=== PATIENT | male | born 1985 ===

== ENCOUNTER 2024-02-10 22:05 | Emergency (ER) | payer BC, SELFPAY ==
[2024-02-10 22:08] VITALS: BP 138/93; PULSE 77; RESP 18; TEMP 36.8; O2SAT 98; BMI 39.1
[2024-02-10 22:21] VITALS: BP 142/88; PULSE 77; RESP 16; TEMP 36.6; O2SAT 93
--- NOTE | 2024-02-10 23:24 | ED.GENADULT ---
HPI - General Adult General Chief complaint: Eye Problems Stated complaint: eye issues/can't really see/painful Time Seen by Provider: 02/10/24 22:23 Source: patient, RN notes reviewed and old records reviewed Mode of arrival: ambulatory Limitations: no limitations History of Present Illness ED Provider: Mariely PEÑA narrative: 39-year-old male presents for evaluation of his eyes burning. Patient reports that his symptoms started 1 week ago. He states his eyes are crusted together when he wakes up He also reports congestion, runny nose. Denies any fevers, chills. He is able to see what states that both of his eyes are sometimes blurry. He does not wear contacts He states that about a month ago he was diagnosed with pinkeye and was started on a medication called polymyxin B. He has some left over because he did not finish the prescription He has been using it for the last 3 days without any improvement Denies any trauma to the eyes but does state that he has been rubbing them frequently due to itching Related Data Previous Rx's ?Medication ?Instructions ?Recorded ciprofloxacin HCl 0.3 % eye See Rx Instructions ophthalmic 02/10/24 ointment (eye) .COMPLEX #3.5 grams Allergies Allergy/AdvReac Type Severity Reaction Status Date / Time No Known Allergies Allergy Verified 02/10/24 22:13 Review of Systems Constitutional: Constitutional: Denies body ache(s), Denies chills, Denies fever(s) and Denies frequent falls Eyes: Eyes: Reports blurry vision, Denies diplopia, Reports eye discharge and Reports itchy eyes ENT: Reports nasal congestion Cardiovascular: Cardiovascular: Denies chest pain and Denies dyspnea Respiratory: Respiratory: Denies cough and Denies dyspnea Gastrointestinal: Gastrointestinal: Denies abdominal pain, Denies nausea and Denies vomiting Integumentary/Breasts: Skin/Breast: Denies rash Neurologic: Denies frequent falls Allergic/Immunologic: Allergic/Immunologic: Reports itchy eyes PMFSH Social History Social History Advance Directives: No Advance Directives Information Provided: No Do you have a plan to hurt others: No Plan Physical Exam ED Vital Signs: Vital Signs - 24 hr 02/10/24 22:08 02/10/24 22:21 Temperature 98.3 F 97.9 F Pulse Rate 77 77 Respiratory Rate 18 16 Blood Pressure 138/93 H 142/88 H Pulse Oximetry 98 93 Oxygen Delivery Method Room Air Room Air BMI result Body Mass Index 39.1 Const General: healthy appearing, comfortable, no acute distress, alert and awake Nutritional Appearance: well nourished Orientation/consciousness: patient oriented x3 HENMT Head: Yes normocephalic and Yes atraumatic Throat: Yes posterior oropharynx normal Eyes Other: Intra-ocular pressure 16 mmHg in the left eye, 18 mm Hg in the right eye Alignment and Position: alignment normal Periorbital: periorbital findings normal Eyelids: Yes eyelids normal Conjunctivae: conjunctival abnormal (Faint bilateral conjunctival injection left greater than right) Sclerae: sclerae normal Corneas: corneas normal and fluorescein used (Fluorescein use without increased uptake) Pupils: Equal, round and reactive pupils present EOM: EOMs intact bilaterally Direct Ophthalmoscopy: normal light reflex Neck Neck: Yes full ROM Resp Effort & Inspection: normal respiratory effort, able to speak in complete sentences and not labored Skin General skin exam: elasticity normal Neuro General: patient oriented x3 Cranial nerves: Yes Equal, round and reactive pupils present and Yes Bilaterally intact EOM present Cognition (Neuro): normal cognition Extrem Other: Moving all extremities well without any obvious deformities Medications Administered Discontinued Medications Generic Name Dose Route Start Last Admin Trade Name Freq PRN Reason Stop Dose Admin Fluorescein Sodium 1 strip 02/10/24 22:37 02/10/24 23:42 Fluorescein Sodium Strip EYE-BOTH 02/10/24 22:38 1 strip ONCE ONE Administration Tetracaine HCl 1 drop 02/10/24 22:37 02/10/24 23:42 Tetracaine Hcl/Pf 0.5% Oph Agustina 4 Ml Drops EYE-BOTH 02/10/24 22:38 1 drop ONCE ONE Administration Medical Decision Making Medical Decision Making [facility] Narrative: 39-year-old male presents for evaluation of bilateral eye pain and burning. History exam consistent with conjunctivitis possibly allergic etiology. He has had no improvement with polymyxin B. we will try ciprofloxacin ointment. However if this is not successful it is likely due to allergic etiology of the symptoms. I encouraged [id number] allergy medication. Intra-ocular pressures are within normal limits, there was no evidence of trauma, there is no to corneal abrasion. Differential Diagnosis Differential Diagnoses: The differential diagnosis associated with the presentation includes Bacterial conjunctivitis Allergic conjunctivitis Corneal abrasion Glaucoma less likely Discharge Plan Discharge Clinical Impression: Conjunctivitis Patient Disposition: Home, Self-Care Instructions: Conjunctivitis (ED) Additional Instructions: Stop using the polymyxin B. Use ciprofloxacin ointment 3 times a day for 5 days I also recommend that you continue the [id number] allergy medication Follow-up with your primary doctor Return for new or worsening symptoms Prescriptions: New ciprofloxacin HCl 0.3 % ointment See Rx Instructions .ROUTE .COMPLEX Qty: 3.5 0RF Rx Instructions: apply 1/2 inch ribbon into affected eye(s) 3 times daily for 2 days; then twice daily for 5 days Stand Alone Forms: Work/School Release Print Language: Tajik
[2024-02-10 23:40] VITALS: BP 142/88; PULSE 77; RESP 16; TEMP 36.6; O2SAT 93
[2024-02-10] MEDS: Fluorescein Sodium STRIP 1 STRIP EYE-BOTH (23:42)
[2024-02-10] MEDS: Tetracaine HCl/PF 0.5% Oph Sol 4 ML DROPS 1 DROP EYE-BOTH (23:42)
== END 2024-02-11 00:11 | disposition home or self-care (01) ==
PROVIDERS: Emergency Provider Emergency Medicine
DX: H10.9 Unspecified conjunctivitis (principal)
CPT/HCPCS: 99283; 99284

== ENCOUNTER 2024-03-07 23:02 | Emergency (ER) | payer BC, SELFPAY ==
[2024-03-07 23:24] VITALS: BP 139/97; PULSE 96; RESP 22; TEMP 37.4; O2SAT 98; BMI 38.1
--- NOTE | 2024-03-07 23:39 | ED.DENTAL ---
HPI - Dental/Oral General Chief complaint: Dental/Oral Stated complaint: dental pain Time Seen by Provider: 03/07/24 23:33 Source: patient Mode of arrival: ambulatory Limitations: no limitations History of Present Illness ED Provider: donato PEÑA Narrative: Patient with dental caries for a while with broken tooth swelling of the jaw which got worse in last few hours does have history of diabetes unable to see a dentist here on arrival temperature was 99.4 degrees Related Data Previous Rx's ?Medication ?Instructions ?Recorded ciprofloxacin HCl 0.3 % eye See Rx Instructions ophthalmic 02/10/24 ointment (eye) .COMPLEX #3.5 grams amoxicillin 875 mg-potassium 1 tab PO BID #20 tabs 03/07/24 clavulanate 125 mg tablet morphine 15 mg immediate release 15 mg PO Q8H PRN pain #15 tabs 03/07/24 tablet Allergies Allergy/AdvReac Type Severity Reaction Status Date / Time No Known Allergies Allergy Verified 03/07/24 23:28 Review of Systems Review of Systems: Yes all other systems are reviewed and are negative [facility] Social History Social History Unable to assess alcohol history related to: Unknown Smoked in Last 30 Days: No Use of substances other than those prescribed or required for medical reasons: No Advance Directives: No Advance Directives Information Provided: Yes Physical Exam Vital Signs: Vital Signs: Last Vital Signs Temp 98.7 F 03/08/24 00:22 Pulse 82 03/08/24 00:22 Resp 16 03/08/24 00:22 BP 157/90 H 03/08/24 00:22 Pulse Ox 98 03/07/24 23:57 O2 Del Method Room Air 03/07/24 23:57 BMI result Body Mass Index 38.1 Appearance: Alert. Oriented X3. No acute distress. Eyes: PERRLA, No Nystagmus ENT: Pharynx normal. Oral Mucosa moist deep cavity left lower premolar no trismus degraded gums no fluctuance no pus discharge Neck: Normal inspection. Neck supple. CVS: Normal heart rate and rhythm. Pulses normal. Respiratory: No respiratory distress. Equal air entry bilateral, no wheezing/rales/rhonchi Abdomen: Soft and nontender. Bowel sounds are present, no mass palpable, no CVA tenderness Skin: Skin warm and dry. Normal skin color. Normal skin turgor. Extremities: No lower extremity edema. No calf tenderness Neuro: Oriented X 3. HEENT: Teeth image: 1. Broken tooth with deep cavity surrounding gum swelling Medications Administered Discontinued Medications Generic Name Dose Route Start Last Admin Trade Name Freq PRN Reason Stop Dose Admin Amoxicillin/Clavulanate Potassium 875 mg 03/07/24 23:38 03/08/24 00:06 Amoxicillin/Potassium Clav 875 Mg Tablet PO 03/07/24 23:39 875 mg ONCE ONE Administration Morphine Sulfate 15 mg 03/07/24 23:38 03/08/24 00:06 Morphine Sulfate Immed Release 15 Mg Tablet PO 03/07/24 23:39 15 mg ONCE ONE Administration Medical Decision Making Medical Decision Making [facility] Narrative: Patient has chronic dental caries with abscess no fluctuant mass noticed at this time chronic indurated gum swelling prescribed Augmentin and pain medication advised to follow up with dentist Discharge Plan Discharge Clinical Impression: Dental abscess Patient Disposition: Home, Self-Care Instructions: Dental Abscess (ED) Additional Instructions: Take antibiotic as prescribed Pain medication as prescribed Follow with the dentist Prescriptions: New morphine 15 mg tablet 15 mg PO Q8H PRN (Reason: pain) Qty: 15 0RF Rx Instructions: Partial Fill upon patient request. amoxicillin-pot clavulanate 875-125 mg tablet 1 tab PO BID Qty: 20 0RF No Action ciprofloxacin HCl 0.3 % ointment See Rx Instructions .ROUTE .COMPLEX Qty: 3.5 0RF Rx Instructions: apply 1/2 inch ribbon into affected eye(s) 3 times daily for 2 days; then twice daily for 5 days Interventions: ED Discharge Assessment Last Done: 03/08/24 00:22 Discharge Date/Time: 03/08/24 00:15 Print Language: Iraqi
[2024-03-07 23:57] VITALS: BP 157/99; PULSE 82; RESP 16; TEMP 37.1; O2SAT 98
[2024-03-08] MEDS: Morphine Sulfate Immed Release 15 MG TABLET PO (00:06)
[2024-03-08] MEDS: Amoxicillin/Potassium Clav 875 MG TABLET PO (00:06)
[2024-03-08 00:22] VITALS: BP 157/90; PULSE 82; RESP 16; TEMP 37.1
== END 2024-03-08 00:15 | disposition home or self-care (01) ==
PROVIDERS: Emergency Provider Internal Medicine
DX: K04.7 Periapical abscess without sinus (principal); K02.9 Dental caries, unspecified; Z79.899 Other long term (current) drug therapy
CPT/HCPCS: 99283; 99284

== ENCOUNTER 2024-03-09 14:09 | Outpatient (AMB) | payer BC, SELFPAY ==
--- NOTE | 2024-03-09 14:15 | MHC.PC.OV ---
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 Note: patient here for new patient visit Manager Style Required: No Allergies dapagliflozin [From [facility]] Allergy (Severe, Verified 03/09/24 14:19) rash Medication List - Last Reconciled 03/09/24 by Francesca Valdez PA-C amlodipine 5 mg PO DAILY amoxicillin-pot clavulanate 875-125 mg 1 tab PO BID hydroxyzine HCl 25 mg PO TID simvastatin 20 mg PO BEDTIME sitagliptin phos-metformin 50-500 mg ER (Janumet XR) 1 tab PO DAILY Tobacco use date assessed: 03/09/24 Dental Screening Dental Screen Date: 03/09/24 Did you have a dental visit in the last 12 months?: No Did you have a dental problem in the last 6 months where you did not have access to dental care?: No Was dental information given to patient?: Patient declined 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 He is transferring form [place]. He states while he was living in [place] in August of this year and was hospitalized for tonie and newly diagnosed dm. He does not have any records today. He was seen 2 days ago in the ER for a dental abscess and started on Augmentin and morphine. CV: At the ER his blood pressure was elevated. Today in the office is 118/88. He is on amlodipine 5 mg and simvastatin 20 mg. -he does noticed since starting the amlodipine his hands and feet get swollen. Endo: He was diagnosed with type 2 diabetes. His last A1c was 7.1. He is on Janumet XR. Monitors his blood sugars daily and states that his glucose ranges from 150-200. He would like a CGM so we can monitor this. He is aware that his insurance may not cover but he hopes that they do because his fingers are often times numb. He states that his feet also have neuropathy. He does not like having to check his blood sugars everyday because the needles make him nervous. -he was on farxiga but d/c on this due to the urinary sx and yeast infections. -He has a fam hx of t2dm. Nephro- He was referred in [place] but unable to be it because he came back to [place]. He believes he had protein in his urine. He avoids NSAIDs. Psych: He did score elevated numbers on his PHQ-9 and his anxiety questionnaire. He does believe some of this is related to his recent diagnoses and his work stressors. 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 1. Little interest or pleasure in doing things: more than half the days 2. Feeling down, depressed, or hopeless: more than half the days 3. Trouble falling or staying asleep, or sleeping too much: nearly every day 4. Feeling tired or having little energy: nearly every day 5. Poor appetite or overeating: more than half the days 6. Feeling bad about yourself - or that you are a failure or have let yourself or your family down: more than half the days 7. Trouble concentrating on things, such as reading the newspaper or watching television: nearly every day 8. Moving or speaking so slowly that other people could have noticed. Or the opposite - being so fidgety or restless that you have been moving around a lot more than usual: several days 9. Thoughts that you would be better off or of hurting yourself in some way: several days Total score: 19 Depression Screening Interpretation: Positive Depression Screening Follow-up: Follow-up Visit Requested Depression Screening Done: Yes [id number] - PHQ-9 Billing: Yes Source: Developed by Drs. Ji Gallagher, Alfred Jordan and colleagues, with an educational charleen from [employer]. Thrive Questionnaire Date Thrive assessed: 03/09/24 I am a: Patient What is your living situation today?: I have a steady place to live Within the past 12 months, did the food you bought not last and you didn't have the money to get more?: Sometimes True Within the past 12 months, did you worry whether your food would run out before you got money to buy more?: Sometimes True Do you have trouble paying for medicines?: Yes Do you have trouble getting transportation to medical appointments?: Yes Do you have trouble paying your heating and electricity bill?: Yes Do you have trouble taking care of your child, family member or friend?: No Do you have trouble with day-to-day activities such as bathing, preparing meals, shopping, managing finances, etc.?: Yes Are you currently unemployed and looking for a job?: No Are you interested in more education?: Yes Please select the resources that you would like help with: Paying for medicine, Utilities and Education Currently or been in a relationship where the following occur: No concerns reported THRIVE Score: 4 AUDIT C Alcohol Use Questionnaire (AUDIT-C) 1. How often do you have a drink containing alcohol?: Never Total Score: 0 Score Reviewed/Action Taken: Yes TIMOTHY-7 AMB Questionnaire TIMOTHY-7 Date TIMOTHY - 7 assessed: 03/09/24 Feeling nervous, anxious, or on edge: 3 = Nearly every day Not being able to stop or control worryin = More than half the days Worrying too much about different things: 2 = More than half the days Trouble relaxin = More than half the days Being so restless that it is hard to sit still: 1 = Several days Becoming easily annoyed or irritable: 1 = Several days Feeling afraid as if something awful might happen: 1 = Several days Total TIMOTHY-7 score (0-4 normal; 5-9 mild; 10-14 moderate; 15-21 severe): 12 Source: Developed by Santa Romero Kurt Kroenke and colleagues, with an educational charleen from [employer]. TIMOTHY-7 Assessment Billing TIMOTHY-7 Assessment Tool: TIMOTHY-7 Assessment 87299 Physical exam (Primary Care) Depression Screening Interpretation: Positive Depression Screening Follow-up: Follow-up Visit Requested Currently or been in a relationship where the following occur: No concerns reported Const Orientation/consciousness: patient oriented x3 HENMT Ears: hearing grossly normal bilaterally and TM's normal bilaterally General nose exam: No nasal polyps present Face and sinus: Yes sinuses nontender Mouth: Normal oral and palatal mucosa present Eyes EOM: EOMs intact bilaterally Neck Neck: Yes full ROM and Yes no lymphadenopathy Thyroid: Thyroid normal Resp Auscultation: clear to auscultation bilaterally Cardio Rate: regular rate Rhythm: regular rhythm Heart sounds: S1 normal heart sound present and S2 normal heart sound present Peripheral pulses: Peripheral pulses 2+ throughout Back/Spine/Pelvis Other: Nontender Skin General skin exam: no rashes or lesions noted Neuro General: patient oriented x3, gait normal, decrease sensation to monofilament and deep tendon reflexes 2+ bilaterally Motor exam (neuro): 5/5 motor strength present throughout Extrem General: Yes normal to inspection and Yes full ROM Psych Affect: normal affect Attitude: cooperative Thought process: Normal thought process present Thought content: Normal thought content present Insight: Good insight present (Psych) Judgement: Good judgement present (Psych) Assessment and Plan Assessment & Plan (1) High blood pressure: Code(s): I10 - Essential (primary) hypertension Plan: We will discontinue amlodipine and start lisinopril. Discussed risks and benefits and adverse effects of this medication including a cough, electrolyte abnormality. Return in 2 weeks to be reassessed. Sooner if needed. Monitors his blood pressures at home. (2) Uncontrolled type 2 diabetes mellitus with hyperglycemia: Code(s): E11.65 - Type 2 diabetes mellitus with hyperglycemia Plan: Freestyle Ayan ordered. Testing supplies ordered. To new current regimen. Referral to diabetic Education. We spent more than 45 minutes in [id number] time discussing diabetes, the pathophysiology of diabetes and complications associated with type 2 diabetes. Reviewed signs and symptoms of hyper and hypoglycemia. (3) CKD stage 3 due to type 2 diabetes mellitus: Code(s): E11.22 - Type 2 diabetes mellitus with diabetic chronic kidney disease; N18.30 - Chronic kidney disease, stage 3 unspecified Plan: Labs ordered today. We will follow up pending test results (4) Needle phobia: Code(s): F40.298 - Other specified phobia Plan: libre3 ordered. Orders: Orders Hemoglobin A1c Today E11.65 - Type 2 diabetes mellitus with hyperglycemia TSH reflex Free T4 Today E11.22 - Type 2 diabetes mellitus with diabetic chronic kidney disease, E11.65 - Type 2 diabetes mellitus with hyperglycemia, G62.9 - Polyneuropathy, unspecified, I10 - Essential (primary) hypertension, N18.30 - Chronic kidney disease, stage 3 unspecified Complete Blood Count Auto Diff Today E11.22 - Type 2 diabetes mellitus with diabetic chronic kidney disease, E11.65 - Type 2 diabetes mellitus with hyperglycemia, G62.9 - Polyneuropathy, unspecified, I10 - Essential (primary) hypertension, N18.30 - Chronic kidney disease, stage 3 unspecified Comprehensive [place]. Panel Fast Today E11.22 - Type 2 diabetes mellitus with diabetic chronic kidney disease, E11.65 - Type 2 diabetes mellitus with hyperglycemia, G62.9 - Polyneuropathy, unspecified, I10 - Essential (primary) hypertension, N18.30 - Chronic kidney disease, stage 3 unspecified Lipid Panel Today E11.22 - Type 2 diabetes mellitus with diabetic chronic kidney disease, E11.65 - Type 2 diabetes mellitus with hyperglycemia, G62.9 - Polyneuropathy, unspecified, I10 - Essential (primary) hypertension, N18.30 - Chronic kidney disease, stage 3 unspecified Microalbumin, Random (w Creat) Today E11.22 - Type 2 diabetes mellitus with diabetic chronic kidney disease, E11.65 - Type 2 diabetes mellitus with hyperglycemia, G62.9 - Polyneuropathy, unspecified, I10 - Essential (primary) hypertension, N18.30 - Chronic kidney disease, stage 3 unspecified Referrals Diabetes Education Referral E11.65 - Type 2 diabetes mellitus with hyperglycemia Medications: New blood sugar diagnostic (FreeStyle Lite Strips) use daily As directed to check blood sugars for diabetes 100 ea 3RF E11.65 - Type 2 diabetes mellitus with hyperglycemia lancets (FreeStyle Lancets) Use daily As directed to check blood sugar 100 ea 3RF E11.65 - Type 2 diabetes mellitus with hyperglycemia, 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 changed q 14 days 2 ea 11RF E11.21 - Type 2 diabetes mellitus with diabetic nephropathy, E11.22 - Type 2 diabetes mellitus with diabetic chronic kidney disease, E11.65 - Type 2 diabetes mellitus with hyperglycemia, F40.298 - Other specified phobia, G62.9 - Polyneuropathy, unspecified, N18.30 - Chronic kidney disease, stage 3 unspecified blood-glucose meter (FreeStyle Lite Meter kit) Use daily As directed to check blood glucose 1 ea 0RF E11.65 - Type 2 diabetes mellitus with hyperglycemia lisinopril 10 mg PO DAILY 90 tabs 0RF Discontinued ciprofloxacin HCl 0.3% Discontinued Reason: Patient no longer taking apply 1/2 inch ribbon into affected eye(s) 3 times daily for 2 days; then twice daily for 5 days 3.5 grams 0RF morphine Partial Fill upon patient request. Discontinued Reason: Insurance Denied 15 mg PO Q8H PRN 15 tabs 0RF pain Coding Level of Care Code New Pt Level 4 (72426) Complex EM visit Add On G2211 Diagnoses High blood pressure I10 Uncontrolled type 2 diabetes mellitus with hyperglycemia E11.65 CKD stage 3 due to type 2 diabetes mellitus E11.22; N18.30 Needle phobia F40.298 Additional Codes TIMOTHY-7 Assessment Billing - TIMOTHY-7 Assessment Tool: TIMOTHY-7 Assessment [id number] ([id number])
[2024-03-09 14:25] VITALS: BP 118/88; PULSE 68; RESP 16; TEMP 36.7; O2SAT 97; BMI 37.8
== END 2024-03-09 15:13 | disposition home or self-care (01) ==
PROVIDERS: Visit Provider Physician Assistant
DX: I12.9 Hypertensive chronic kidney disease with stage 1 through stage 4 chronic kidney disease, or unspecified chronic kidney disease (principal); E11.65 Type 2 diabetes mellitus with hyperglycemia; E11.22 Type 2 diabetes mellitus with diabetic chronic kidney disease; N18.30 Chronic kidney disease, stage 3 unspecified; F40.298 Other specified phobia
CPT/HCPCS: 99204

== ENCOUNTER 2024-03-09 15:37 | Outpatient (REF) | payer BC, SELFPAY ==
[2024-03-09 15:46] LABS: MANUAL DIFF FLAG NO
[2024-03-09 17:25] LABS: Basophils Percent Auto 0.5 % (0-2); Eosinophils Absolute Auto 0.1 X10*3/uL (0.0-0.4); Eosinophils Percent Auto 2.3 % (0-4); Hematocrit 44.7 % (42.0-52.0); Hemoglobin 15.1 g/dl (14.0-18.0); Imm Gran Abs Auto 0.01 X10*3/uL (0.00-0.03); Imm Gran Pct Auto 0.2 % (0.0-0.4); Lymphocytes Absolute Auto 2.3 X10*3/uL (1.2-4.9); Lymphocytes Percent Auto 40.3 % (20-40); Mean Corpuscular HGB Conc 33.8 g/dl (31.0-36.0); Mean Corpuscular Hemoglobin 27.5 pg (27.0-33.0); Mean Corpuscular Volume 81.3 fL (80.0-98.0); Mean Platelet Volume 9.8 fL (9.4-12.4); Monocytes Absolute Auto 0.4 X10*3/uL (0.1-1.2); Monocytes Percent Auto 7.3 % (2-11); Neutrophils Absolute Auto 2.8 x10*3/uL (2.0-8.3); Neutrophils Percent Auto 49.4 % (45-73); Platelet Count 331 X10*3/uL (160-400); Red Cell Distribution Width 13.1 % (11.0-16.0); White Blood Count 5.6 X10*3/uL (4.8-10.8)
[2024-03-09 18:02] LABS: Microalbum/Creatinine Ratio Ur 21.7 ug/mg cr (<30)
[2024-03-09 18:08] LABS: Alanine Aminotransferase 33 U/L (0-40); Albumin Level 4.6 g/dL (3.5-5.0); Alkaline Phosphatase 98 U/L (39-117); Anion Gap 11 (12-20); Aspartate Amino Transferase 21 U/L (5-37); Bilirubin Total 0.6 mg/dL (0.0-1.0); Blood Urea Nitrogen 15 mg/dL (9-16); Calcium 10.4 mg/dL (8.4-10.2); Carbon Dioxide 27 mmol/L (22-29); Chloride 106 mmol/L (96-108); Cholesterol 150 mg/dL (<200); Estimated Glomerular Filt Rate 58; Glucose Fasting 86 mg/dL (60-99); HDL Cholesterol 34 mg/dL (>40); LDL Cholesterol Calculated 97 mg/dL (<100); Sodium 140 mmol/L (135-145); Total Protein 7.5 g/dL (6.5-8.0); Triglycerides 97 mg/dL (<150)
[2024-03-10 08:13] LABS: Estimated Average Glucose 108 mg/dL; Hemoglobin A1c % 5.4 % (<6.0)
== END 2024-03-09 15:38 | disposition home or self-care (01) ==
LOC: HO.LAB 15:37
PROVIDERS: PCP Physician Assistant; Visit Provider Physician Assistant
DX: I12.9 Hypertensive chronic kidney disease with stage 1 through stage 4 chronic kidney disease, or unspecified chronic kidney disease (principal); E11.65 Type 2 diabetes mellitus with hyperglycemia; E11.22 Type 2 diabetes mellitus with diabetic chronic kidney disease; N18.30 Chronic kidney disease, stage 3 unspecified; G62.9 Polyneuropathy, unspecified
CPT/HCPCS: 36415; 80053; 80061; 82043; 82570; 83036; 84443; 85025

== ENCOUNTER 2024-03-11 11:27 | Outpatient (AMB) | payer BC, SELFPAY ==
[2024-03-11 11:45] VITALS: BP 110/64; PULSE 67; TEMP 37.1; O2SAT 99; BMI 38.1
--- NOTE | 2024-03-11 11:45 | MHC.OFFWIV ---
Intake Vital Signs 03/11/24 11:45 Height 5 ft 5 in Weight 229 lb BMI 38.1 BP 110/64 Blood Pressure Location Lt brachial Position Sitting Pulse 67 Pulse Source Pulse Oximeter Temp 98.7 F Temp Source Oral Pulse Oximetry (%) 99 Oxygen Delivery Method Room Air Intake Visit Reasons: EP Kidney pain/feet swelling pain Intake Note: Patient is here with kidney pain, was diagnosed with kidney disease stage 3 patient states it get to the point that he has to leave work. Patient Tobacco Use Status: Never used Tobacco Allergies dapagliflozin [From [facility]] Allergy (Severe, Verified 03/11/24 11:49) rash Do you need a note to return to daycare/school/sports/work: Yes HPI EP Kidney pain/feet swelling pain HPI Details Patient has had low back pain chronically for more than a month. Denies any fevers or chills Denies any urinary symptoms or blood in urine Pain at with flexion and extension at his back Does not recall any acute injury recently [facility] Medical History (Updated 03/11/24 @ 12:26 by Cody Smith MD) Depression Anxiety Kidney disease Swelling Diabetes High cholesterol High blood pressure Family History (Updated 03/09/24 @ 14:35 by Alyssia Ann) Father Alcohol abuse High blood pressure Maternal Grandfather Asthma High blood pressure High cholesterol Social History Housing: House Unable to assess alcohol history related to: Unknown Patient Tobacco Use Status: Never used Tobacco e-Cigarette/Vaping Use: Never Used Second Hand Smoke Exposure: No service: No Current occupational status: employed 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 Current occupational exposures/hazards: No Cognitive needs: No Hearing needs: No Vision needs: Yes Review of Systems Const Details: Low back pain See HPI Physical Exam Vital Signs: Last Vital Signs Temp 98.7 F 03/11/24 11:45 Pulse 67 03/11/24 11:45 BP 110/64 03/11/24 11:45 Pulse Ox 99 03/11/24 11:45 Oxygen Delivery Method Room Air 03/11/24 11:45 BMI result Body Mass Index 38.1 Const General: no acute distress and well developed Nutritional Appearance: well nourished Orientation/consciousness: patient oriented x3 HEENT Head: Yes normocephalic and Yes atraumatic Eyes General: appearance normal, both eyes and all related structures Pupils: Equal, round and reactive pupils present EOM: EOMs intact bilaterally Resp Effort & Inspection: normal respiratory effort Auscultation: clear to auscultation bilaterally Cardio Rate: regular rate Rhythm: regular rhythm Heart sounds: S1 normal heart sound present, S2 normal heart sound present, no gallops, no murmurs and no rubs Back/Spine/Pelvis Other: Tenderness at bilateral low back, essentially sparing central aspect of lower back. Tender to palpation but no CVA tenderness to palpation Pain with flexion extension at the waist Normal SLR bilaterally Neuro General: patient oriented x3 and gait normal Cranial nerves: Yes Equal, round and reactive pupils present Psych Affect: normal affect Results AMB Urinalysis, Automated UA Leukoctes 0 Josh/uL Last Edit by Nadine Carrion CMA on 03/11/24 12:08 UA Nitrite Negative Last Edit by Nadine Carrion CMA on 03/11/24 12:08 UA Urobilinogen 0.2 mg/dL Last Edit by Nadine Carrion CMA on 03/11/24 12:08 UA Protein 0 mg/dL Last Edit by Nadine Carrion CMA on 03/11/24 12:08 UA pH 6.0 Last Edit by Nadine Carrion CMA on 03/11/24 12:08 UA Blood 0 Ten/uL Last Edit by Nadine Carrion CMA on 03/11/24 12:08 UA Specific [place] 1.025 Last Edit by Nadine Carrion CMA on 03/11/24 12:08 UA Ketone Negative Last Edit by Nadine Carrion CMA on 03/11/24 12:08 UA Bilirubin 0 mg/dL Last Edit by Nadine Carrion CMA on 03/11/24 12:08 UA Glucose 0 mg/dL Last Edit by Nadine Carrion CMA on 03/11/24 12:08 Results Reviewed Results Reviewed: Laboratory Last Values Urine pH (Auto) 6.0 03/11/24 12:05 Specific [place] (Auto) 1.025 03/11/24 12:05 Urine Protein (Auto) 0 mg/dL 03/11/24 12:05 Glucose (UA)(Auto) 0 mg/dL 03/11/24 12:05 Urine Ketones (Auto) Negative 03/11/24 12:05 Urine Blood (Auto) 0 Ten/uL 03/11/24 12:05 Urine Nitrite (Auto) Negative 03/11/24 12:05 Urine Bilirubin (Auto) 0 mg/dL 03/11/24 12:05 Urine Urobilinogen (Auto) 0.2 mg/dL 03/11/24 12:05 Leukocyte Esterase (Auto) 0 Josh/uL 03/11/24 12:05 Assessment & Plan Assessment & Plan (1) Low back pain: Code(s): M54.50 - Low back pain, unspecified Plan: Chronic bilateral low back pain. No CVA TTP Urine studies and negative for infection or blood/stones Reassured patient that this does not appear to be secondary to any pain from kidneys. This appears muscular. Start physical therapy Patient has some mild chronic renal disease - avoiding NSAIDs. He can use Tylenol Will give him a topical a NSAID Use ice/heat Will give him the day off from work today Orders: Orders AMB Urinalysis Automated Today E11.22 - Type 2 diabetes mellitus with diabetic chronic kidney disease, N18.30 - Chronic kidney disease, stage 3 unspecified PT Evaluation and Treatment Today M54.50 - Low back pain, unspecified Medications: New diclofenac sodium 1% apply to single knee, ankle, foot; for foot includes sole/toes/top of foot 4 grams topical QID 14 days 100 grams 1RF Coding Level of Care Code Est Pt Level 3 (06194) Diagnoses Low back pain M54.50
== END 2024-03-11 12:51 | disposition home or self-care (01) ==
PROVIDERS: PCP Physician Assistant; Visit Provider Family Medicine
DX: E11.22 Type 2 diabetes mellitus with diabetic chronic kidney disease (principal); N18.30 Chronic kidney disease, stage 3 unspecified; M54.50 Low back pain, unspecified
CPT/HCPCS: 81003; 99213

== ENCOUNTER 2024-03-21 15:51 | Outpatient (AMB) | payer BC, SELFPAY ==
--- NOTE | 2024-03-21 16:28 | A.OFFVIS_ITS ---
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 Accompanied by: Self / Same As Patient Allergies dapagliflozin [From [facility]] Allergy (Severe, Verified 03/11/24 11:49) rash HPI Comprehensive Diabetes Asmnt Most Recent Diabetes Results: Microalb/Creat Ratio 21.7 ug/mg cr (<30) 03/09/24 Cholesterol 150 mg/dL (<200) 03/09/24 HDL Cholesterol 34 mg/dL (>40) L 03/09/24 Triglycerides 97 mg/dL (<150) 03/09/24 Creatinine 1.38 mg/dL (0.5-1.4) 03/09/24 Blood Urea Nitrogen 15 mg/dL (9-16) 03/09/24 Sodium 140 mmol/L (135-145) 03/09/24 Potassium 4.0 mmol/L (3.3-5.1) 03/09/24 Chloride 106 mmol/L (96-108) 03/09/24 Carbon Dioxide 27 mmol/L (22-29) 03/09/24 Calcium 10.4 mg/dL (8.4-10.2) H 03/09/24 AST 21 U/L (5-37) 03/09/24 ALT 33 U/L (0-40) 03/09/24 Total Protein 7.5 g/dL (6.5-8.0) 03/09/24 Albumin 4.6 g/dL (3.5-5.0) 03/09/24 PFSH Medical History (Updated 03/11/24 @ 12:26 by Cody Smith MD) Depression Anxiety Kidney disease Swelling Diabetes High cholesterol High blood pressure Family History (Updated 03/09/24 @ 14:35 by Alyssia Ann) Father Alcohol abuse High blood pressure Maternal Grandfather Asthma High blood pressure High cholesterol Social History Housing: House Unable to assess alcohol history related to: Unknown Patient Tobacco Use Status: Never used Tobacco e-Cigarette/Vaping Use: Never Used Second Hand Smoke Exposure: No service: No Current occupational status: employed 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 2= needs review? 3= comprehend keep point? 4= demonstrates understanding/ competent? NC= Not Covered Topics Learning Objective: Initial visit Initial or post srvc Initial or post srvc Initial or post srvc Initial or post srvc Initial or post srvc Post srvc Comments Pre Edu-assessment/plan Outcome or reassess Outcome or reassess Outcome or reassess Outcome or reassess Outcome or reassess Outcome or reassess Diabetes pathophysiology 1 Healthy eating 1 Being active 1 Taking medication 1 Monitoring glucose 1 Acute complication 1 Chronic complicated Lifestyle and healthy coping Diabetes distress in support ?Diabetes pathophysiology: ?Defined diabetes med identify own type of diabetes; list 3 options for treating diabetes Healthy eating: ?Described effect of type, amount and ?timing of food on blood glucose; list 3 methods for planning meal Being active: ?State effect of exercise on blood glucose level Taking medication: ?State effect of diabetes medications on diabetes; name diabetes medications taking, action and side effects Monitoring glucose: ?Identify recommended blood glucose targets and personal target Acute complication: ?List symptoms and treatment of hyper and hypoglycemia, DKA, sick day guidelines and guidelines for severe weather or situations of crisis and diabetes supply manage Chronic complication: ?To find the relationship of blood glucose levels to long- term complications of diabetes in screening and preventative measures Lifestyle and healthy coping: ?Described lifestyle and healthy coping strategies to rule out diabetes self-management Diabetes to stress and support: ?Recognize Diabetes to stress and be able to identified support options Learning objectives: The patient was provided with verbal and written education on the following topics as outlined below. The patient met all learning objectives and was able to verbalize understanding and provide teach back of education topics discussed . The patient was provided with the opportunity to ask questions and all questions were answered. Patient Assessment Assess patient education level/literacy/barriers Patient questions/concerns, patient was newly diagnosed in August 2023, recalls that his A1c at that time was 7.1% Current A1c 5.4% on 03/09/2024 Patient is currently on Janumet XR 50-500mg daily Currently waiting on prescription for Ayan 3 to be approved due to needle phobia What is Diabetes? Pathophysiology How the body produces and uses insulin Identify type of DM Risk factors Signs of Diabetes Brief overview of Diabetes Management Monitoring blood sugar Following a meal plan Regular exercise Maintaining a healthy weight Taking medication as needed Members of the care team (PCP, RN, MA, RD, CDE, communications analyst) Blood glucose monitoring When/how often to test Target blood sugar ranges Patient did not bring meter to today's visit Introduction to Nutrition Importance of healthy diet in managing DM Diet is personalized to individual preference Review patient?s regular diet/food preferences Who prepares meals/does food shopping/ Dining out?/ Barriers? How diet effects glucose Eating 3 balanced meals a day with small, healthy snacks between meals Review food groups Carbohydrates: What is a carbohydrate/Which food/food groups are considered carbohydrates Effect of carbohydrates on blood glucose Portion sizes Reading food labels Basic carb counting (if applicable per nursing assessment) Plate method Meal planning Recommendations: Follow plate method, consistent carbs and read nutritional labels. Smart Goal: Patient will identify foods in his current meal plan that contain carbohydrate Educational Materials: The patient was provided with the following written educational materials: Planning Healthy Meals Handout Patient Response to instructions: Comprehension of Instructions: Fair Readiness to make changes: Contemplation How confident they feel about making changes: Positive Portions of this note were created using voice recognition software, please excuse any words or phrases that may have been misinterpreted. Patient Instructions: Include regular daily activity. ADA recommends 30 minutes of exercise 5 days a week. Weight loss talk to PCP or Fire Extinguisher Inspector before starting new plan. Test blood sugar as directed; Fasting and 2hpp largest meal. Watch trends in results. Utilize results and to assess how food, physical activity and medications affect blood sugar results. Bring glucometer or CGM to next visit. Be knowledgeable about diabetes medication, its action, side effects, efficacy, toxicity, prescribed dosage, appropriate timing and frequency of administration, effect of missed and delayed doses and instructions for storage, travel and safety. Problem solving techniques to monitor hypo/hyperglycemia episodes and treatments. Reduce risk reduction behaviors, smoking cessation, regular eye, foot and dental examinations. Follow-up with Diabetes Education nurse in 2 months Coding Level of Care Code Est Pt Level 1 (24972) Diagnoses Uncontrolled type 2 diabetes mellitus with hyperglycemia E11.65
== END 2024-03-21 16:36 | disposition home or self-care (01) ==
PROVIDERS: PCP Physician Assistant; Visit Provider Registered Nurse Diabetes Educator
DX: E11.65 Type 2 diabetes mellitus with hyperglycemia (principal)

== ENCOUNTER → 2024-03-21 15:51 | Outpatient (BNVA) | payer BC, SELFPAY | PROVIDERS: PCP Physician Assistant; Visit Provider Registered Nurse Diabetes Educator | DX: E11.65 Type 2 diabetes mellitus with hyperglycemia (principal) | CPT/HCPCS: 99211 ==

== ENCOUNTER 2024-03-29 15:13 | Outpatient (AMB) | payer BC, SELFPAY ==
--- NOTE | 2024-03-29 15:34 | A.OFFPC_ITS ---
Vital Signs 03/29/24 15:42 03/29/24 15:47 Height 5 ft 5 in Weight 226 lb 8 oz BMI 37.7 BP 134/110 H 110/90 H Blood Pressure Location Lt brachial Lt brachial Position Sitting Sitting Respiration 14 Pulse 74 Pulse Source Pulse Oximeter Pulse Oximetry (%) 97 Oxygen Delivery Method Room Air Intake Visit Reasons: bp check Intake Note: Follow up blood pressure. Stopped simvastatin a week and a half ago samuel he read online that it is not good for kidneys. Patient ran out of [employer] 2 weeks ago, insurance doesn't want to cover. 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 changed q 14 days hydroxyzine HCl 25 mg PO TID lancets (FreeStyle Lancets) Use daily As directed to check blood sugar lisinopril 10 mg PO DAILY simvastatin 20 mg PO BEDTIME Tobacco use date assessed: 03/09/24 Dental Screening Dental Screen Date: 03/09/24 HPI bp check HPI Details Patient is a 39-year-old male with a significant past medical history of hypertension, hyperlipidemia, type 2 diabetes and chronic kidney disease presenting today for a follow up. He is relatively new here. -he does complain today of Bilateral martir t pain. He states that it is mostly on the heels of his feet and it happens after he has been standing for a long time or if he is sitting and goes to get back up. He states that the pain causes him to have to take a rest. There is no swelling. He has not tried anything other than diabetic shoes. He says it does not feel like it helps. He has tried inserts with no improvement. There is no calf pain, numbness or tingling. Endo: insurance did not cover Yieldr. does not tolerate farxiga. He currently does not have any medications for his diabetes at home. His last A1c was 5.4. States that he has been trying to control this with diet which has been somewhat effective. -he is on an MITA-inhibitor and statin. Nephro: Has an appointment this week. Kidney function is stable. Understands that he needs to avoid NSAIDs. 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 1. Little interest or pleasure in doing things: more than half the days 2. Feeling down, depressed, or hopeless: more than half the days 3. Trouble falling or staying asleep, or sleeping too much: nearly every day 4. Feeling tired or having little energy: more than half the days 5. Poor appetite or overeating: more than half the days 6. Feeling bad about yourself - or that you are a failure or have let yourself or your family down: more than half the days 7. Trouble concentrating on things, such as reading the newspaper or watching television: several days 8. Moving or speaking so slowly that other people could have noticed. Or the opposite - being so fidgety or restless that you have been moving around a lot more than usual: more than half the days 9. Thoughts that you would be better off or of hurting yourself in some way: not at all Total score: 16 Source: Developed by Drs. Ji Gallagher, Santa Calderon, Alfred Breaux and colleagues, with an educational charleen from [employer]. Thrive Questionnaire Date Thrive assessed: 03/27/24 I am a: Patient What is your living situation today?: I choose not to answer this question Within the past 12 months, did the food you bought not last and you didn't have the money to get more?: Sometimes True Within the past 12 months, did you worry whether your food would run out before you got money to buy more?: Often true Do you have trouble paying for medicines?: Yes Do you have trouble getting transportation to medical appointments?: Yes Do you have trouble paying your heating and electricity bill?: Yes Do you have trouble taking care of your child, family member or friend?: No Do you have trouble with day-to-day activities such as bathing, preparing meals, shopping, managing finances, etc.?: Yes Are you currently unemployed and looking for a job?: No Are you interested in more education?: I choose not to answer this question Please select the resources that you would like help with: Housing/Penitentiary, Food, Paying for medicine, Transportation and Utilities Currently or been in a relationship where the following occur: No concerns reported THRIVE Score: 4 AUDIT C Alcohol Use Questionnaire (AUDIT-C) 1. How often do you have a drink containing alcohol?: Monthly or less 2. How many drinks containing alcohol do you have on a typical day when you are drinking?: 1 or 2 3. How often do you have six or more drinks on one occasion?: Never Total Score: 1 TIMOTHY-7 AMB Questionnaire TIMOTHY-7 Date TIMOTHY - 7 assessed: 03/09/24 Feeling nervous, anxious, or on edge: 2 = More than half the days Not being able to stop or control worryin = More than half the days Worrying too much about different things: 2 = More than half the days Trouble relaxin = Nearly every day Being so restless that it is hard to sit still: 2 = More than half the days Becoming easily annoyed or irritable: 2 = More than half the days Feeling afraid as if something awful might happen: 2 = More than half the days Total TIMOTHY-7 score (0-4 normal; 5-9 mild; 10-14 moderate; 15-21 severe): 15 Source: Developed by Drs. Ji Gallagher, Santa Calderon, Alfred Breaux and colleagues, with an educational charleen from [employer]. Physical exam (Primary Care) Vital Signs: Last Vital Signs Pulse 74 03/29/24 15:42 Resp 14 03/29/24 15:42 BP 110/90 H 03/29/24 15:47 Pulse Ox 97 03/29/24 15:42 Oxygen Delivery Method Room Air 03/29/24 15:42 BMI result Body Mass Index 37.7 Tobacco/Smoking Status: Tobacco use Status Tobacco use date assessed 03/09/24 03/29/24 15:39 Patient Tobacco Use Status Never used Tobacco 03/29/24 15:39 e-Cigarette/Vaping Use Never Used 03/29/24 15:39 PHQ-9: PHQ-9 Score PHQ-9: Total score 16 03/29/24 16:14 Thrive Assessment: Date of Thrive Assessment Date Thrive assessed 03/27/24 03/29/24 15:39 Currently or been in a relationship where the following occur: No concerns repor reji Const Orientation/consciousness: patient oriented x3 Neck Neck: Yes no lymphadenopathy Thyroid: Thyroid normal Carotids: no bruits Resp Auscultation: clear to auscultation bilaterally Cardio Rate: regular rate Rhythm: regular rhythm Heart sounds: S1 normal heart sound present and S2 normal heart sound present Peripheral pulses: dorsalis pedis present Neuro General: patient oriented x3, gait normal and no focal motor deficits Extrem Other: There is tenderness to palpation on the plantar aspect of the bilateral medial heels. General: Yes normal to inspection Results Reviewed Results Reviewed: Laboratory Tests 03/09/24 15:45 Sodium 140 Potassium 4.0 Chloride 106 Carbon Dioxide 27 Anion Gap 11 L BUN 15 Creatinine 1.38 Estimated GFR 58 Fasting Glucose 86 Hemoglobin A1c % 5.4 Triglycerides 97 Cholesterol 150 LDL Cholesterol, Calc 97 HDL Cholesterol 34 L Assessment and Plan Assessment & Plan (1) Bilateral foot pain: Code(s): M79.671 - Pain in right foot; M79.672 - Pain in left foot Plan: X-rays ordered. Referral to Podiatry. Phone number provided. We discussed stretches and treatment for plantar fasciitis. Advised that he could try topical diclofenac. Work note provided. (2) CKD stage 3 due to type 2 diabetes mellitus: Code(s): E11.22 - Type 2 diabetes mellitus with diabetic chronic kidney disease; N18.30 - Chronic kidney disease, stage 3 unspecified Plan: Follow with Nephrology (3) Uncontrolled type 2 diabetes mellitus with hyperglycemia: Code(s): E11.65 - Type 2 diabetes mellitus with hyperglycemia Plan: We will start metformin. States that in the past his blood sugars were not well-controlled with just metformin. I will also add Ozempic. Discussed risks and benefits and adverse effects of this medication such as nausea, vomiting, pancreatitis, constipation, diarrhea etc.. (4) High blood pressure: Code(s): I10 - Essential (primary) hypertension Plan: Increase lisinopril Orders: Orders XR foot LT min 3V 03/29/24 M79.671 - Pain in right foot, M79.672 - Pain in left foot XR foot RT min 3V 03/29/24 M79.671 - Pain in right foot, M79.672 - Pain in left foot Referrals Podiatry Referral M79.671 - Pain in right foot, M79.672 - Pain in left foot Medications: New lisinopril 20 mg PO DAILY 90 tabs 1RF semaglutide (Ozempic) for 4 weeks 0.25 mg (0.368 mL) subcut QWEEK 3 mL 2RF metformin 500 mg PO BID 180 tabs 1RF Discontinued lisinopril Discontinued Reason: Doctor's Order 10 mg PO DAILY 90 tabs 0RF Coding Level of Care Code Est Pt Level 4 (55299) Complex EM visit Add On G2211 Diagnoses Bilateral foot pain M79.671; M79.672 CKD stage 3 due to type 2 diabetes mellitus E11.22; N18.30 Uncontrolled type 2 diabetes mellitus with hyperglycemia E11.65 High blood pressure I10
[2024-03-29 15:42] VITALS: BP 134/110; PULSE 74; RESP 14; O2SAT 97; BMI 37.7
[2024-03-29 15:47] VITALS: BP 110/90
== END 2024-03-29 16:27 | disposition home or self-care (01) ==
PROVIDERS: PCP Physician Assistant; Visit Provider Physician Assistant
DX: I12.9 Hypertensive chronic kidney disease with stage 1 through stage 4 chronic kidney disease, or unspecified chronic kidney disease (principal); E11.22 Type 2 diabetes mellitus with diabetic chronic kidney disease; N18.30 Chronic kidney disease, stage 3 unspecified; E11.65 Type 2 diabetes mellitus with hyperglycemia; M79.671 Pain in right foot; M79.672 Pain in left foot

== ENCOUNTER → 2024-03-29 15:13 | Outpatient (BNVA) | payer BC, SELFPAY | PROVIDERS: PCP Physician Assistant; Visit Provider Physician Assistant | DX: M79.671 Pain in right foot (principal); M79.672 Pain in left foot; E11.22 Type 2 diabetes mellitus with diabetic chronic kidney disease; I12.9 Hypertensive chronic kidney disease with stage 1 through stage 4 chronic kidney disease, or unspecified chronic kidney disease; N18.30 Chronic kidney disease, stage 3 unspecified; E11.65 Type 2 diabetes mellitus with hyperglycemia; Z79.899 Other long term (current) drug therapy | CPT/HCPCS: 96127 ==

== ENCOUNTER 2024-03-31 14:02 | Outpatient (AMB) | payer BC, SELFPAY ==
[2024-03-31 14:04] VITALS: BP 126/86; PULSE 80; O2SAT 98; BMI 37.6
--- NOTE | 2024-03-31 14:04 | HO.NEPHOV ---
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 Recent serum creatinine was 1.3 with a EGFR of 58 mL/minute. Hence this referral. 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 Current occupational exposures/hazards: No Cognitive needs: No Hearing needs: No Vision needs: Yes Review of Systems Const Denies fever(s) and Denies weight loss Card Denies chest pain Resp Denies cough and Denies hemoptysis GI Denies abdominal pain, Denies diarrhea and Denies nausea Musc Denies back pain Neuro Denies focal weakness Physical Exam Vital Signs: Last Vital Signs Pulse 80 03/31/24 14:04 BP 126/86 03/31/24 14:04 Pulse Ox 98 03/31/24 14:04 Oxygen Delivery Method Room Air 03/31/24 14:04 BMI result Body Mass Index 37.6 Const General: comfortable; No acute distress Orientation/consciousness: patient oriented x3 Eyes General: appearance normal, both eyes and all related structures Visual Bradley: normal visual bradley by confrontation Neck Neck: Yes supple and Yes no JVD Resp Effort & Inspection: normal respiratory effort and respiratory effort not decreased Auscultation: rhonchi Cardio Palpation: no palpable S3 and no palpable S4 Heart sounds: no rubs GI Inspection: Yes normal to inspection Palpation (GI): Soft to palpation Percussion: Yes normal to percussion Auscultation: normal bowel sounds General: Yes no CVA tenderness Back/Spine/Pelvis Back: no CVA tenderness Skin General skin exam: no petechiae and no purpura Neuro General: patient oriented x3 and no focal motor deficits Extrem General: No clubbing and No edema Results Reviewed Nephrology Results: Hgb 15.1 g/dl (14.0-18.0) 03/09/24 WBC 5.6 X10*3/uL (4.8-10.8) 03/09/24 Plt Count 331 X10*3/uL (160-400) 03/09/24 Sodium 140 mmol/L (135-145) 03/09/24 Potassium 4.0 mmol/L (3.3-5.1) 03/09/24 Chloride 106 mmol/L (96-108) 03/09/24 Carbon Dioxide 27 mmol/L (22-29) 03/09/24 BUN 15 mg/dL (9-16) 03/09/24 Creatinine 1.38 mg/dL (0.5-1.4) 03/09/24 Calcium 10.4 mg/dL (8.4-10.2) H 03/09/24 Urine Creatinine 334.96 mg/dL 03/09/24 Assessment & Plan Assessment & Plan (1) CKD stage 3 due to type 2 diabetes mellitus: Code(s): E11.22 - Type 2 diabetes mellitus with diabetic chronic kidney disease; N18.30 - Chronic kidney disease, stage 3 unspecified Category: Medical Plan Farhan has mild CKD in a setting of longstanding diabetes mellitus. He has stage III CKD. Most likely has underlying diabetic kidney disease Other possibilities including obstructive uropathy should be ruled out although seems unlikely at this time. Mild hypercalcemia. Rule out primary hyperparathyroidism. Blood pressure is acceptable at this time. Recommendations include workup is outlined below. Check PTH. Twenty-four urine collection to calculate creatinine clearance which could be more accurate to assess his kidney function. Further workup will be based on the outcome of the above investigations Orders: Orders Creatinine Clearance Urine 24U 1 Week E11.22 - Type 2 diabetes mellitus with diabetic chronic kidney disease, N18.30 - Chronic kidney disease, stage 3 unspecified Protein, 24 Hr Urine Group 1 Week E11. - Type 2 diabetes mellitus with diabetic chronic kidney disease, N18.30 - Chronic kidney disease, stage 3 unspecified Parathyroid Hormone Intact 1 Week E11. - Type 2 diabetes mellitus with diabetic chronic kidney disease, N18.30 - Chronic kidney disease, stage 3 unspecified Phosphorus 1 Week E11. - Type 2 diabetes mellitus with diabetic chronic kidney disease, N18.30 - Chronic kidney disease, stage 3 unspecified Vitamin D 25-OH (D2 and D3) 1 Week E11. - Type 2 diabetes mellitus with diabetic chronic kidney disease, N18.30 - Chronic kidney disease, stage 3 unspecified Comprehensive Met. Panel 1 Week . - Type 2 diabetes mellitus with diabetic chronic kidney disease, N18.30 - Chronic kidney disease, stage 3 unspecified Creatinine, 24 Hr Group 1 Week . - Type 2 diabetes mellitus with diabetic chronic kidney disease, N18.30 - Chronic kidney disease, stage 3 unspecified Coding Level of Care Code New Pt Level 4 (69842) Diagnoses CKD stage 3 due to type 2 diabetes mellitus ; N18.30
== END 2024-03-31 14:21 | disposition home or self-care (01) ==
PROVIDERS: PCP Physician Assistant; Referring Provider Physician Assistant; Visit Provider Internal Medicine Hypertension Specialist
DX: E11.22 Type 2 diabetes mellitus with diabetic chronic kidney disease (principal); N18.30 Chronic kidney disease, stage 3 unspecified
CPT/HCPCS: 99204

== ENCOUNTER → 2024-03-31 14:02 | Outpatient (BNVA) | payer BC, SELFPAY | PROVIDERS: PCP Physician Assistant; Referring Provider Physician Assistant; Visit Provider Internal Medicine Hypertension Specialist ==

== ENCOUNTER 2024-05-04 11:28 | Outpatient (REF) | payer BC, SELFPAY ==
[2024-05-04 12:39] LABS: Phosphorus 2.1 mg/dL (2.7-4.5)
[2024-05-04 12:47] LABS: Parathyroid Hormone Intact 103.9 pg/mL (8.7-77.1)
[2024-05-09 14:28] LABS: Vitamin D 25-OH, D2 <4 ng/mL; Vitamin D 25-OH, D3 17 ng/mL; Vitamin D 25-OH, Total 17 ng/mL (30-100)
== END 2024-05-04 11:29 | disposition home or self-care (01) ==
LOC: HO.LAB 11:28
PROVIDERS: PCP Physician Assistant; Visit Provider Internal Medicine Hypertension Specialist
DX: E11.22 Type 2 diabetes mellitus with diabetic chronic kidney disease (principal); N18.30 Chronic kidney disease, stage 3 unspecified
CPT/HCPCS: 36415; 82306; 83970; 84100

== ENCOUNTER 2024-05-05 10:47 | Outpatient (AMB) | payer BC, SELFPAY ==
--- NOTE | 2024-05-05 10:07 | HO.NEPHOV_ITS ---
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 changed q 14 days lancets (FreeStyle Lancets) Use daily As directed to check blood sugar lisinopril 20 mg PO DAILY metformin 500 mg PO BID HPI Comments Details: Farhan is a pleasant 39-year-old man with a history of diabetes mellitus for several years has been referred for mild CKD. Recent serum creatinine was 1.3 with a EGFR of 58 mL/minute. works in [employer], reports tries to stay away from continuous and heavy lifting +shortness of breath- reports ongoing for a year now. reports even when just sitting there and not necessarily with activity reports ongoing swelling of ankles and feet and hands ongoing tingling in hands on and off states he is not sure if he snores +headaches but reports these are later in the day, denies morning headaches reports ongoing fatigue for at least a year now throughout the day, wakes up tired despite getting what he feels is a good night's sleep reports he is taking metformin 500mg BID and lisinopril 20mg daily as prescribed reports he is urinating comfortably without issues reports he is not drinking much water- reports some days does not drink any fluid at all all day, on those days his UOP is minimal reports he is trying to minimize his salt- reports he is eating canned vegetables but rinses them to get rid of salt eating less sugar, reports A1c is in low 5's Denies other concerns today [facility] Medical History (Updated 05/05/24 @ 11:27 by Neetu Olivas DNP, FILLING AND STAPLING MACHINE OPERATOR-) Depression Anxiety Kidney disease Swelling Diabetes High cholesterol High blood pressure Family History Father Alcohol abuse High blood pressure Maternal Grandfather Asthma High blood pressure High cholesterol Social History Housing: House Unable to assess alcohol history related to: Unknown Patient Tobacco Use Status: Never used Tobacco e-Cigarette/Vaping Use: Never Used Second Hand Smoke Exposure: No service: No Current occupational status: employed 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 Current occupational exposures/hazards: No Cognitive needs: No Hearing needs: No Vision needs: Yes Review of Systems Const Reports daytime sleepiness, Reports fatigue, Reports headache(s) (headaches mid day), Reports lethargy and Denies weight gain ENT Denies dizziness and Reports headache(s) (headaches mid day) Card Denies chest pain, Reports pedal edema, Denies claudication, Denies lightheadedness, Reports dyspnea (reports this is present even without activity ) and Denies orthopnea Resp Reports dyspnea (reports this is present even without activity ) GI Denies abdominal pain, Denies constipation and Denies diarrhea Denies hematuria, Denies difficulty urinating, Denies dysuria and Denies flank pain Musc Denies back pain, Denies arthralgias and Denies joint swelling Skin/Breast Denies rash Neuro Denies dizziness and Reports headache(s) (headaches mid day) Endo Reports fatigue Physical Exam Const General: no acute distress and well developed Neck Neck: Yes no JVD Thyroid: Thyroid normal Resp Effort & Inspection: normal respiratory effort Auscultation: clear to auscultation bilaterally Cardio Jugular venous distension: no JVD Palpation: normal PMI Rate: regular rate Rhythm: regular rhythm Heart sounds: S1 normal heart sound present, S2 normal heart sound present and no murmurs Bruits: no carotid bruits GI Palpation (GI): Soft to palpation and nontender General: Yes no CVA tenderness Back/Spine/Pelvis Back: no CVA tenderness Skin Lesions: no lesions Rashes: no rashes Extrem General: No edema (no lower extremity edema present today on exam) Results Reviewed Nephrology Results: Hgb 15.1 g/dl (14.0-18.0) 03/09/24 WBC 5.6 X10*3/uL (4.8-10.8) 03/09/24 Plt Count 331 X10*3/uL (160-400) 03/09/24 Sodium 140 mmol/L (135-145) 03/09/24 Potassium 4.0 mmol/L (3.3-5.1) 03/09/24 Chloride 106 mmol/L (96-108) 03/09/24 Carbon Dioxide 27 mmol/L (22-29) 03/09/24 BUN 15 mg/dL (9-16) 03/09/24 Creatinine 1.38 mg/dL (0.5-1.4) 03/09/24 Calcium 10.4 mg/dL (8.4-10.2) H 03/09/24 Phosphorus 2.1 mg/dL (2.7-4.5) L 05/04/24 PTH Intact 103.9 pg/mL (8.7-77.1) H 05/04/24 Urine Creatinine 334.96 mg/dL 03/09/24 Assessment & Plan Assessment & Plan (1) CKD stage 3 due to type 2 diabetes mellitus: Code(s): E11.22 - Type 2 diabetes mellitus with diabetic chronic kidney disease; N18.30 - Chronic kidney disease, stage 3 unspecified Category: Medical (2) Hypercalcemia: Code(s): E83.52 - Hypercalcemia Category: Medical (3) High blood pressure: Code(s): I10 - Essential (primary) hypertension Category: Medical Qualifiers: Hypertension type: primary hypertension Qualified Code(s): I10 - Essential (primary) hypertension Plan Farhan has mild CKD in a setting of longstanding diabetes mellitus. He has stage III CKD. Most likely has underlying diabetic kidney disease Other possibilities including obstructive uropathy should be ruled out although seems unlikely at this time. Mild hypercalcemia with elevated PTH of 103; vitamin D studies pending will check updated calcium level differential includes primary hyperparathyroidism Blood pressure is acceptable at this time- will wait for 24 hour urine results will prescribe lasix 20mg x3 days due to patient's report of swelling discomfort in feet intermittently- strongly advised needs to drink more water when taking this medication or it will hurt kidneys- pt agrees to significantly increase his water intake- advised should drink 2.5-3L water/fluid daily discussed canned foods may absorb sodium even if rinsed, so is likely taking in excess salt this way- advised should avoid canned vegetables and continue to work to avoid added dietary salt He will continue to work on weight loss and diabetic control He agrees to get 24h urine collection done tomorrow Further workup will be based on the outcome of the above investigations Orders: Orders Calcium Today E83.52 - Hypercalcemia Medications: New furosemide 20 mg PO DAILY 3 days 3 tabs 0RF I10 - Essential (primary) hypertension, M79.89 - Other specified soft tissue disorders Coding Level of Care Code Est Pt Level 4 (12228) Diagnoses CKD stage 3 due to type 2 diabetes mellitus E11.22; N18.30 Hypercalcemia E83.52 Primary hypertension I10 Hypertension type: primary hypertension
[2024-05-05 10:50] VITALS: BP 134/98; PULSE 77; O2SAT 99; BMI 36.9
== END 2024-05-05 11:18 | disposition home or self-care (01) ==
PROVIDERS: PCP Physician Assistant; Visit Provider Internal Medicine Hypertension Specialist
DX: I12.9 Hypertensive chronic kidney disease with stage 1 through stage 4 chronic kidney disease, or unspecified chronic kidney disease (principal); E11.22 Type 2 diabetes mellitus with diabetic chronic kidney disease; N18.30 Chronic kidney disease, stage 3 unspecified; E83.52 Hypercalcemia
CPT/HCPCS: 99214

== ENCOUNTER → 2024-05-05 10:47 | Outpatient (BNVA) | payer BC, SELFPAY | PROVIDERS: PCP Physician Assistant; Visit Provider Internal Medicine Hypertension Specialist ==

== ENCOUNTER 2024-05-09 11:46 | Outpatient (REF) | payer BC, SELFPAY ==
[2024-05-09 12:55] LABS: Alanine Aminotransferase 44 U/L (0-40); Albumin Level 4.4 g/dL (3.5-5.0); Alkaline Phosphatase 99 U/L (39-117); Anion Gap 12 (12-20); Aspartate Amino Transferase 32 U/L (5-37); Bilirubin Total 0.3 mg/dL (0.0-1.0); Blood Urea Nitrogen 13 mg/dL (9-16); Calcium 9.2 mg/dL (8.4-10.2); Carbon Dioxide 30 mmol/L (22-29); Chloride 104 mmol/L (96-108); Estimated Glomerular Filt Rate > 60; Glucose Random 97 mg/dL (60-115); Potassium 3.7 mmol/L (3.3-5.1); Sodium 142 mmol/L (135-145)
[2024-05-09 14:17] LABS: Creatinine, mg/dL 146.29; Protein mg/dL < 7 mg/dL
[2024-05-09 18:10] LABS: Protein 24 Hr Urine < 96 mg/Day (<150); Total Volume 24 Hour Urine 1375 mL
[2024-05-09 18:11] LABS: Creatinine (CrCl) 1.07 mg/dL (0.5-1.4); Creatinine Clearance 130.5 mL/min (85-125)
== END 2024-05-09 11:47 | disposition home or self-care (01) ==
LOC: HO.LAB 11:46
PROVIDERS: PCP Physician Assistant; Visit Provider Internal Medicine Hypertension Specialist
DX: E11.22 Type 2 diabetes mellitus with diabetic chronic kidney disease (principal); N18.30 Chronic kidney disease, stage 3 unspecified
CPT/HCPCS: 36415; 80053; 82575; 84156

== ENCOUNTER 2024-05-22 10:26 | Outpatient (AMB) | payer BC, SELFPAY ==
[2024-05-22 10:33] VITALS: BP 142/88; PULSE 82; O2SAT 96; BMI 36.9
--- NOTE | 2024-05-22 10:33 | HO.NEPHOV_ITS ---
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 changed q 14 days lancets (FreeStyle Lancets) Use daily As directed to check blood sugar lisinopril 20 mg PO DAILY metformin 500 mg PO BID HPI Comments Details: Farhan is a pleasant 39-year-old man with a history of diabetes mellitus for several years has been referred for mild CKD. Recent serum creatinine was 1.3 with a EGFR of 58 mL/minute. works in [employer], reports tries to stay away from continuous and heavy lifting +shortness of breath- reports ongoing for a year now. reports even when just sitting there and not necessarily with activity reports ongoing swelling of ankles and feet and hands ongoing tingling in hands on and off states he is not sure if he snores +headaches but reports these are later in the day, denies morning headaches reports ongoing fatigue for at least a year now throughout the day, wakes up tired despite getting what he feels is a good night's sleep reports he is taking metformin 500mg BID and lisinopril 20mg daily as prescribed reports he is urinating comfortably without issues reports he is not drinking much water- reports some days does not drink any fluid at all all day, on those days his UOP is minimal reports he is trying to minimize his salt- reports he is eating canned vegetables but rinses them to get rid of salt eating less sugar, reports A1c is in low 5's 05/22/24 Overall doing ok has fatigue No edema He tried Farxiga in [place] and had side effects and unable to tolerate Lisinopril has been increased to 20 mg QD PFS Medical History (Updated 05/05/24 @ 11:27 by Neetu Olivas, DNP, TICKER MAINTAINER-BC) Depression Anxiety Kidney disease Swelling Diabetes High cholesterol High blood pressure Family History Father Alcohol abuse High blood pressure Maternal Grandfather Asthma High blood pressure High cholesterol Social History Housing: House Unable to assess alcohol history related to: Unknown Patient Tobacco Use Status: Never used Tobacco e-Cigarette/Vaping Use: Never Used Second Hand Smoke Exposure: No service: No Current occupational status: employed 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 Current occupational exposures/hazards: No Cognitive needs: No Hearing needs: No Vision needs: Yes Physical Exam Vital Signs: Last Vital Signs Pulse 82 05/22/24 10:33 BP 142/88 H 05/22/24 10:33 Pulse Ox 96 05/22/24 10:33 Oxygen Delivery Method Room Air 05/22/24 10:33 BMI result Body Mass Index 36.9 Results Reviewed Nephrology Results: Sodium 142 mmol/L (135-145) 05/09/24 Potassium 3.7 mmol/L (3.3-5.1) 05/09/24 Chloride 104 mmol/L (96-108) 05/09/24 Carbon Dioxide 30 mmol/L (22-29) H 05/09/24 BUN 13 mg/dL (9-16) 05/09/24 Creatinine 1.07 mg/dL (0.5-1.4) 05/09/24 Calcium 9.2 mg/dL (8.4-10.2) 05/09/24 Phosphorus 2.1 mg/dL (2.7-4.5) L 05/04/24 PTH Intact 103.9 pg/mL (8.7-77.1) H 05/04/24 Assessment & Plan Assessment & Plan (1) CKD stage 3 due to type 2 diabetes mellitus: Code(s): E11.22 - Type 2 diabetes mellitus with diabetic chronic kidney disease; N18.30 - Chronic kidney disease, stage 3 unspecified Category: Medical (2) Hypercalcemia: Code(s): E83.52 - Hypercalcemia Category: Medical (3) High blood pressure: Code(s): I10 - Essential (primary) hypertension Category: Medical Qualifiers: Hypertension type: primary hypertension Qualified Code(s): I10 - Ess ential (primary) hypertension Plan Farhan has mild CKD in a setting of longstanding diabetes mellitus. 24 hr urine shows Cr CL of 130 ml/mt Probably has hyperfilteration from early diabetic kidney disease eGFR is falsely low Mild hypercalcemia with elevated PTH of 103; Repeat Ca is normal after stopping Ca supplements Need to primary hyperparathyroidism Would repeat PTH and consider adding Ergocalceferol Blood pressure is acceptable at this time Stay on low salt diet Orders: Orders Basic Metabolic Panel 3 Months E83.52 - Hypercalcemia, I10 - Essential (primary) hypertension Phosphorus 3 Months E83.52 - Hypercalcemia, I10 - Essential (primary) hypertension Parathyroid Hormone Intact 3 Months E83.52 - Hypercalcemia, I10 - Essential (primary) hypertension Coding Level of Care Code Est Pt Level 4 (32821) Diagnoses CKD stage 3 due to type 2 diabetes mellitus E11.22; N18.30 Hypercalcemia E83.52 Primary hypertension I10 Hypertension type: primary hypertension
[2024-05-22 10:48] VITALS: BP 130/84
== END 2024-05-22 10:58 | disposition home or self-care (01) ==
PROVIDERS: PCP Physician Assistant; Visit Provider Internal Medicine Hypertension Specialist
DX: I12.9 Hypertensive chronic kidney disease with stage 1 through stage 4 chronic kidney disease, or unspecified chronic kidney disease (principal); E11.22 Type 2 diabetes mellitus with diabetic chronic kidney disease; N18.30 Chronic kidney disease, stage 3 unspecified; E83.52 Hypercalcemia
CPT/HCPCS: 99214

== ENCOUNTER → 2024-05-22 10:26 | Outpatient (BNVA) | payer BC, SELFPAY | PROVIDERS: PCP Physician Assistant; Visit Provider Internal Medicine Hypertension Specialist ==

== ENCOUNTER 2024-09-02 07:56 | Outpatient (REF) | payer BC, SELFPAY ==
--- OUTSIDE RECORDS SUMMARY | 2024-09-02 07:58 | XMS_ITS | Clinical Summary ---
Author Organization [facility] Address [address] [place] [address] Care Team Providers Care Gear Inspector Name Role Phone Unavailable Primary Care Provider Unavailabl e Social History Tobacco Use Types Packs/Day Years Used Date Smoking Tobacco: Never Assessed Sex and Gender Information Value Date Recorded Sex Assigned at Not on file Gender Identity Not on file Sexual Orientation Not on file Plan of Treatment Not on file
--- OUTSIDE RECORDS SUMMARY | 2024-09-02 07:58 | XMS_ITS | Clinical Summary ---
Author Organization [facility] Facility Address [address] [place] [address] Care Team Providers Care Javascript Software Engineer Name Role Phone Unavailable Primary Care Provider Unavailabl e Social History Tobacco Use Types Packs/Day Years Used Date Smoking Tobacco: Never Assessed Sex and Gender Information Value Date Recorded Sex Assigned at Not on file Legal Sex Male 10:43 AM EDT Gender Identity Not on file Sexual Orientation Not on file Plan of Treatment Health Maintenance Due Date Last Done Comments Hepatitis B Vaccine (1 of 3 - 19+ 3-dose series) 2005 Influenza Vaccine (#1) 2024 Pneumococcal Vaccine: Pediat rics (0 to 5 Years) and At-Risk Patients (6 to 64 Years) Aged Out No longer eligi ble based on patient's age to complete this topic Insurance [facility]
[2024-09-02 09:54] LABS: Anion Gap 12 (12-20); Blood Urea Nitrogen 16 mg/dL (9-16); Calcium 9.6 mg/dL (8.4-10.2); Carbon Dioxide 26 mmol/L (22-29); Chloride 106 mmol/L (96-108); Estimated Glomerular Filt Rate > 60; Glucose Random 96 mg/dL (60-115); Potassium 3.6 mmol/L (3.3-5.1); Sodium 140 mmol/L (135-145)
[2024-09-02 09:56] LABS: Parathyroid Hormone Intact 110.8 pg/mL (8.7-77.1)
== END 2024-09-02 07:57 | disposition home or self-care (01) ==
LOC: HO.LAB 07:56
PROVIDERS: PCP Physician Assistant; Visit Provider Internal Medicine Hypertension Specialist
DX: I10 Essential (primary) hypertension (principal); E83.52 Hypercalcemia
CPT/HCPCS: 36415; 80048; 83970; 84100

== ENCOUNTER 2024-09-04 15:49 | Outpatient (AMB) | payer BC, SELFPAY ==
[2024-09-04 15:53] VITALS: BP 112/72; PULSE 97; O2SAT 99; BMI 37.1
--- NOTE | 2024-09-04 15:53 | HO.NEPHOV ---
Vital Signs 09/04/24 15:53 Height 5 ft 5 in Weight 223 lb BMI 37.1 BP 112/72 Blood Pressure Location Lt brachial Position Sitting Pulse 97 Pulse Source Pulse Oximeter Pulse Oximetry (%) 99 Oxygen Delivery Method Room Air Intake Visit Reasons: 3mon follow up w/labs-LVM Reed Polisher Required: No Accompanied by: Self / Same As Patient Allergies dapagliflozin [From Farxiga] Allergy (Severe, Verified 09/04/24 16:01) rash Medication List - Last Reconciled 09/04/24 by Farhan Dietrich MD blood sugar diagnostic (FreeStyle Lite Strips) use daily As directed to check blood sugars for diabetes blood-glucose meter (FreeStyle Lite Meter kit) Use daily As directed to check blood glucose blood-glucose sensor (FreeStyle Ayan 3 Sensor device) use daily As directed to monitor type 2 diabetes. changed q 14 days lancets (FreeStyle Lancets) Use daily As directed to check blood sugar lisinopril 20 mg PO DAILY metformin 500 mg PO BID HPI Comments Details: Farhan is a pleasant 39-year-old man with a history of diabetes mellitus for several years has been referred for mild CKD. Recent serum creatinine was 1.3 with a EGFR of 58 mL/minute. works in [employer], reports tries to stay away from continuous and heavy lifting +shortness of breath- reports ongoing for a year now. reports even when just sitting there and not necessarily with activity reports ongoing swelling of ankles and feet and hands ongoing tingling in hands on and off states he is not sure if he snores +headaches but reports these are later in the day, denies morning headaches reports ongoing fatigue for at least a year now throughout the day, wakes up tired despite getting what he feels is a good night's sleep reports he is taking metformin 500mg BID and lisinopril 20mg daily as prescribed reports he is urinating comfortably without issues reports he is not drinking much water- reports some days does not drink any fluid at all all day, on those days his UOP is minimal reports he is trying to minimize his salt- reports he is eating canned vegetables but rinses them to get rid of salt eating less sugar, reports A1c is in low 5's 05/22/24 Overall doing ok ;has fatigue ;No edema He tried Farxiga in [place] and had side effects and unable to tolerate Lisinopril has been increased to 20 mg QD 09/04/24 Overall doing well Another episode of flu PFSH Medical History (Updated 05/05/24 @ 11:27 by Neetu Olivas, DNP, WE[employer] SYSTEM INSTRUMENT MECHANIC-BC) Depression Anxiety Kidney disease Swelling Diabetes High cholesterol High blood pressure Family History Father Alcohol abuse High blood pressure Maternal Grandfather Asthma High blood pressure High cholesterol Social History Housing: House Unable to assess alcohol history related to: Unknown Patient Tobacco Use Status: Never used Tobacco e-Cigarette/Vaping Use: Never Used Second Hand Smoke Exposure: No service: No Current occupational status: employed 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 Current occupational exposures/hazards: No Cognitive needs: No Hearing needs: No Vision needs: Yes Physical Exam Vital Signs: Last Vital Signs Pulse 97 09/04/24 15:53 BP 112/72 09/04/24 15:53 Pulse Ox 99 09/04/24 15:53 Oxygen Delivery Method Room Air 09/04/24 15:53 BMI result Body Mass Index 37.1 Const General: no acute distress and well developed Neck Neck: Yes no JVD Thyroid: Thyroid normal Resp Effort & Inspection: normal respiratory effort Auscultation: clear to auscultation bilaterally Cardio Jugular venous distension: no JVD Palpation: normal PMI Rate: regular rate Rhythm: regular rhythm Heart sounds: S1 normal heart sound present, S2 normal heart sound present and no murmurs Bruits: no carotid bruits GI Palpation (GI): Soft to palpation and nontender General: Yes no CVA tenderness Back/Spine/Pelvis Back: no CVA tenderness Skin Lesions: no lesions Rashes: no rashes Extrem General: No edema (no lower extremity edema present today on exam) Results Reviewed Nephrology Results: Sodium 140 mmol/L (135-145) 09/02/24 Potassium 3.6 mmol/L (3.3-5.1) 09/02/24 Chloride 106 mmol/L (96-108) 09/02/24 Carbon Dioxide 26 mmol/L (22-29) 09/02/24 BUN 16 mg/dL (9-16) 09/02/24 Creatinine 1.27 mg/dL (0.5-1.4) 09/02/24 Calcium 9.6 mg/dL (8.4-10.2) 09/02/24 Phosphorus 3.0 mg/dL (2.7-4.5) 09/02/24 PTH Intact 110.8 pg/mL (8.7-77.1) H 09/02/24 Assessment & Plan Assessment & Plan (1) CKD stage 3 due to type 2 diabetes mellitus: Code(s): E11.22 - Type 2 diabetes mellitus with diabetic chronic kidney disease; N18.30 - Chronic kidney disease, stage 3 unspecified Category: Medical (2) Hypercalcemia: Code(s): E83.52 - Hypercalcemia Category: Medical (3) High blood pressure: Code(s): I10 - Essential (primary) hypertension Category: Medical Qualifiers: Hypertension type: primary hypertension Qualified Code(s): I10 - Essential (primary) hypertension Plan Farhan has mild CKD in a setting of longstanding diabetes mellitus. 24 hr urine shows Cr CL of 130 ml/mt Probably has hyperfilteration from early diabetic kidney disease eGFR is falsely low Mild hypercalcemia with elevated PTH of 103; Repeat Ca is normal after stopping Ca supplements Repeat PTH is still elevated Vit D is low ADD Ergocalceferol 2000 U daily Blood pressure is acceptable at this time Stay on low salt diet Orders: Orders Basic Metabolic Panel 1 Month E83.52 - Hypercalcemia Parathyroid Hormone Intact 1 Month E83.52 - Hypercalcemia Medications: New ergocalciferol (vitamin D2) 50 mcg PO DAILY 90 caps 0RF Coding Level of Care Code Est Pt Level 4 (95825) Diagnoses CKD stage 3 due to type 2 diabetes mellitus E11.22; N18.30 Hypercalcemia E83.52 Primary hypertension I10 Hypertension type: primary hypertension
--- OUTSIDE RECORDS SUMMARY | 2024-09-04 18:03 | XMS_ITS | Clinical Summary ---
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
== END 2024-09-04 16:16 | disposition home or self-care (01) ==
PROVIDERS: PCP Physician Assistant; Visit Provider Internal Medicine Hypertension Specialist
DX: E11.22 Type 2 diabetes mellitus with diabetic chronic kidney disease (principal); N18.30 Chronic kidney disease, stage 3 unspecified; E83.52 Hypercalcemia; I10 Essential (primary) hypertension
CPT/HCPCS: 99214

== ENCOUNTER 2024-11-03 00:31 | Emergency (ER) | payer BC, SELFPAY ==
[2024-11-03 00:41] VITALS: BP 140/97; PULSE 79; RESP 18; TEMP 36.7; O2SAT 97; BMI 32.3
--- NOTE | 2024-11-03 01:54 | ED_ITS ---
HPI - Extremity Problem General Chief complaint: Extremity Injury, Upper Stated complaint: shoulder pain Time Seen by Provider: 11/03/24 01:47 Source: patient Mode of arrival: ambulatory Limitations: no limitations History of Present Illness ED Provider: Sarah Mckeon NP HPI Narrative: Patient is a 39-year-old male who presents emergency department for evaluation of right shoulder pain located posteriorly to the lower aspect of the scapula. He states that earlier this afternoon he was using a hand truck to carry a pellet stove down a flight of stairs, he felt a pulling sensation to the posterior right shoulder/scapula with resultant pain. Pain has been intermittent in nature since and exacerbated with certain arm movements. He did not take any OTC medication prior to arrival. Denies any numbness or tingling. Denies history of prior injury to this shoulder. He denies associated GI symptoms, abdominal pain, nausea, vomiting, no chest pain. Related Data Previous Rx's ?Medication ?Instructions ?Recorded blood-glucose meter (FreeStyle #1 ea 03/09/24 Lite Meter kit) blood-glucose sensor (FreeStyle #2 ea 03/09/24 Ayan 3 Sensor device) lancets 28 gauge (FreeStyle #100 ea 03/09/24 Lancets) blood sugar diagnostic (FreeStyle #50 ea 04/13/24 Lite Strips) ergocalciferol (vitamin D2) 50 mcg 50 mcg PO DAILY #90 caps 09/04/24 (2,000 unit) capsule lisinopril 20 mg tablet 20 mg PO DAILY #30 tabs 09/21/24 metformin 500 mg tablet 500 mg PO BID #60 tabs 09/21/24 cyclobenzaprine 10 mg tablet 10 mg PO BEDTIME PRN muscle spasm 11/03/24 #10 tabs Allergies Allergy/AdvReac Type Severity Reaction Status Date / Time dapagliflozin [From [facility]] Allergy Severe rash Verified 11/03/24 00:44 Review of Systems Review of Systems: Yes all other systems are reviewed and are negative PMFSH Past Medical History Attestation statement: The following information was validated with the patient. Source: old records reviewed Medical History Depression Anxiety Kidney disease Swelling Diabetes High cholesterol High blood pressure Family History Family History Father Alcohol abuse High blood pressure Maternal Grandfather Asthma High blood pressure High cholesterol Social History Social History Housing: House Unable to assess alcohol history related to: Unknown Patient Tobacco Use Status: Never used Tobacco e-Cigarette/Vaping Use: Never Used Second Hand Smoke Exposure: No Advance Directives: No Advance Directives Information Provided: No Do you have a plan to hurt others: No Plan service: No Current occupational status: employed 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 No acute distress.?Normal affect. CVS: Heart sounds normal. Normal heart rate and rhythm.? Pulses normal.?? Respiratory: No respiratory distress.? Lung sounds clear to auscultation bilaterally?? Abdomen: Soft and non-tender. Normoactive bowel sounds. Negative Palacios sign. ? Skin: Skin warm and dry.? Normal skin color.? Extremities: No extremity edema. 2+ radial pulse. Tenderness upon palpation beneath the right inferior goal of the scapula. Has near full range of motion but does exacerbate pain, slightly limited abduction to 70 degrees Neuro: Moves all extremities spontaneously. Sensation intact bilaterally. Ambulates with normal steady gait. Medical Decision Making Medical Decision Making MDM Narrative: Patient is a 39-year-old male who presents emergency department for evaluation of right shoulder pain after heavy lifting as per HPI. He has near full range of motion aside from slightly limited abduction, exacerbation of pain with certain movements, and palpable tenderness beneath the inferior angle of the scapula concerning for muscular strain at this time. Defer radiographic imaging, history and physical examination not consistent with fracture/dislocation. The extremities neurovascularly intact distally. We discussed conservative treatment, outpatient follow-up with primary care doctor and reviewed worrisome signs and symptoms that would warrant re-evaluation emergency department. All questions answered. Stable for discharge. Differential Diagnosis Differential Diagnoses: The differential diagnosis associated with the presentation includes (Muscular strain, impingement) External Record Review External record reviewed: Outpatient record Prescription Management I considered prescription management with: Pain Medication Discharge Plan Discharge Clinical Impression: Right shoulder strain Patient Disposition: Home, Self-Care Instructions: Muscle Strain (ED), R.I.C.E. Treatment (ED) Additional Instructions: You can take ibuprofen 200 mg, 3 tablets (600mg) every 6-8 hours as needed for pain, in addition to Tylenol 500 mg, 2 tablets (1,000mg) every 4-6 hours as needed for pain, but not to exceed 3 doses daily (3,000mg).? Apply ice for 10-15 minutes 4-6 times daily. After the first 2 days you may switch to heat. For pain that is unrelieved by any of the above I have sent a short prescription for a muscle relaxant to your pharmacy. This medication may make you drowsy. You should not drive, drink alcohol, or work while taking this medication. Contact your primary care doctor to arrange for a follow-up visit. You may return to emergency department any new or worsening symptoms or concerns. Prescriptions: New cyclobenzaprine 10 mg tablet 10 mg PO BEDTIME PRN (Reason: muscle spasm) Qty: 10 0RF No Action (DME) FreeStyle Lite Strips Strip See Rx Instructions .ROUTE .MEDSUPPLY Qty: 50 6RF Rx Instructions: use daily As directed to check blood sugars for diabetes metformin 500 mg tablet 500 mg PO BID Qty: 60 0RF lisinopril 20 mg tablet 20 mg PO DAILY Qty: 30 0RF (DME) blood-glucose meter [FreeStyle Lite Meter] Kit See Rx Instructions .ROUTE .MEDSUPPLY Qty: 1 0RF Rx Instructions: Use daily As directed to check blood glucose (DME) lancets [FreeStyle Lancets] 28 gauge misc See Rx Instructions .ROUTE .MEDSUPPLY Qty: 100 3RF Rx Instructions: Use daily As directed to check blood sugar (DME) FreeStyle Ayan 3 Sensor Device See Rx Instructions .ROUTE .MEDSUPPLY Qty: 2 11RF Rx Instructions: use daily As directed to monitor type 2 diabetes. changed q 14 days ergocalciferol (vitamin D2) 50 mcg (2,000 unit) capsule 50 mcg PO DAILY Qty: 90 0RF Referrals: Francesca Valdez PA-C [Primary Care Provider] - Stand Alone Forms: Work/School Release Print Language: Mongolian
== END 2024-11-03 02:59 | disposition home or self-care (01) ==
PROVIDERS: Emergency Provider Internal Medicine; PCP Physician Assistant
DX: S46.911A Strain of unspecified muscle, fascia and tendon at shoulder and upper arm level, right arm, initial encounter (principal); X50.0XXA Overexertion from strenuous movement or load, initial encounter; M25.511 Pain in right shoulder; Y93.89 Activity, other specified; Y92.9 Unspecified place or not applicable; Y99.9 Unspecified external cause status
CPT/HCPCS: 99281; 99283

== ENCOUNTER 2024-11-08 13:31 | Outpatient (REF) | payer BC, SELFPAY ==
--- NOTE | ~2024-11-08 | XR_ITS ---
CLINICAL HISTORY: M54.2 - Cervicalgia 4 views cervical spine Comparison: None Findings: Normal alignment. No acute fractures or dislocation. No significant degenerative change. No prevertebral soft tissue swelling. IMPRESSION: No acute findings. This document has been electronically signed by: Kenyon Newsome MD on 11/10/2024 09:01:35
--- NOTE | ~2024-11-08 | XR_ITS ---
CLINICAL HISTORY: M54.6 - Pain in thoracic spine 3 views thoracic spine Comparison: None Findings: Normal alignment. No acute fractures or dislocation. No significant degenerative change. IMPRESSION: No acute findings. This document has been electronically signed by: Kenyon Newsome MD on 11/10/2024 09:01:44
[2024-11-08 15:49] LABS: MANUAL DIFF FLAG NO
[2024-11-08 16:13] LABS: Basophils Percent Auto 0.7 % (0-2); Eosinophils Absolute Auto 0.1 X10*3/uL (0.0-0.4); Eosinophils Percent Auto 2.9 % (0-4); Hematocrit 45.4 % (42.0-52.0); Hemoglobin 15.1 g/dl (14.0-18.0); Imm Gran Abs Auto 0.01 X10*3/uL (0.00-0.03); Imm Gran Pct Auto 0.2 % (0.0-0.4); Lymphocytes Absolute Auto 1.7 X10*3/uL (1.2-4.9); Lymphocytes Percent Auto 37.3 % (20-40); Mean Corpuscular HGB Conc 33.3 g/dl (31.0-36.0); Mean Corpuscular Hemoglobin 26.8 pg (27.0-33.0); Mean Corpuscular Volume 80.6 fL (80.0-98.0); Mean Platelet Volume 9.4 fL (9.4-12.4); Monocytes Absolute Auto 0.3 X10*3/uL (0.1-1.2); Monocytes Percent Auto 6.7 % (2-11); Neutrophils Absolute Auto 2.4 x10*3/uL (2.0-8.3); Neutrophils Percent Auto 52.2 % (45-73); Platelet Count 298 X10*3/uL (160-400); Red Blood Count 5.63 X10*6/uL (4.60-5.80); Red Cell Distribution Width 13.6 % (11.0-16.0); White Blood Count 4.5 X10*3/uL (4.8-10.8)
--- OUTSIDE RECORDS SUMMARY | 2024-11-08 16:23 | XMS_ITS | Clinical Summary ---
Author Organization [facility] Facility Address [address] [place] [address] Care Team Providers Care Media Intern Name Role Phone Unavailable Primary Care Provider [...] patient's age to complete this topic Insurance [facility]
--- OUTSIDE RECORDS SUMMARY | 2024-11-08 16:23 | XMS_ITS | Clinical Summary ---
Author Organization [facility] Address [address] [place] [address] Care Team Providers Care Salesperson Women'S Dresses Name Role Phone Unavailable Primary Care Provider Unavailabl e Social History Tobacco Use Types Packs/Day Years Used Date Smoking Tobacco: Never Assessed Sex and Gender Information Value Date Recorded Sex Assigned at Not on file Gender Identity Not on file Sexual Orientation Not on file Plan of Treatment Not on file
[2024-11-08 16:31] LABS: Estimated Average Glucose 117 mg/dL; Hemoglobin A1c % 5.7 % (<6.0); Total Hemoglobin (HGBA1C) 3755.1934 umol/L
[2024-11-08 16:42] LABS: Alanine Aminotransferase 45 U/L (0-40); Albumin Level 4.5 g/dL (3.5-5.0); Alkaline Phosphatase 101 U/L (39-117); Anion Gap 14 (12-20); Aspartate Amino Transferase 37 U/L (5-37); Bilirubin Total 0.5 mg/dL (0.0-1.0); Blood Urea Nitrogen 18 mg/dL (9-16); Calcium 9.5 mg/dL (8.4-10.2); Carbon Dioxide 25 mmol/L (22-29); Chloride 106 mmol/L (96-108); Cholesterol 204 mg/dL (<200); Estimated Glomerular Filt Rate > 60; Glucose Fasting 94 mg/dL (60-99); Glucose Random 93 mg/dL (60-115); HDL Cholesterol 38 mg/dL (>40); LDL Cholesterol Calculated 134 mg/dL (<100); Potassium 3.7 mmol/L (3.3-5.1); Sodium 141 mmol/L (135-145); Total Protein 7.2 g/dL (6.5-8.0); Triglycerides 160 mg/dL (<150)
[2024-11-08 16:43] LABS: Parathyroid Hormone Intact 134.6 pg/mL (8.7-77.1)
[2024-11-08 16:59] LABS: TSH reflex Free T4 0.64 uIU/mL (0.32-4.0)
== END 2024-11-08 13:32 | disposition home or self-care (01) ==
LOC: HO.XRAY 13:31
PROVIDERS: Internal Medicine Hypertension Specialist; PCP Physician Assistant; Visit Provider Physician Assistant
DX: M54.6 Pain in thoracic spine (principal); E11.65 Type 2 diabetes mellitus with hyperglycemia; E11.22 Type 2 diabetes mellitus with diabetic chronic kidney disease; I12.9 Hypertensive chronic kidney disease with stage 1 through stage 4 chronic kidney disease, or unspecified chronic kidney disease; N18.30 Chronic kidney disease, stage 3 unspecified; M54.2 Cervicalgia; E83.52 Hypercalcemia
CPT/HCPCS: 36415; 72040; 72072; 80048; 80053; 80061; 83036; 83970; 84443; 85025; 96127

== ENCOUNTER 2024-11-08 13:31 | Outpatient (AMB) | payer BC, SELFPAY ==
--- NOTE | 2024-11-08 13:39 | MHC.PC.OV ---
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 changed q 14 days cyclobenzaprine 10 mg PO BEDTIME PRN ergocalciferol (vitamin D2) 50 mcg PO DAILY lancets (FreeStyle Lancets) Use daily As directed to check blood sugar lisinopril 20 mg PO DAILY metformin 500 mg PO BID Tobacco use date assessed: 11/08/24 Dental Screening Dental Screen Date: 11/08/24 Did you have a dental visit in the last 12 months?: No Did you have a dental problem in the last 6 months where you did not have access to dental care?: No Was dental information given to patient?: Patient declined HPI pulled/pinch nerve in back([facility] [place]) HPI Details Patient is a 39-year-old male with a significant past medical history of hypertension, hyperlipidemia, type 2 diabetes and chronic kidney disease presenting today for an acute problem visit regarding back pain. MSK: He was seen at the ER last week with complaints of right upper back pain that radiates into the right shoulder and up the neck and down the back. He states that he was lifting a pellet stove down the stairs when he felt a warm sensation across his back. He later went to lay down in bed in roll over and had the sharp pain. He states that it feels like he threw his back out. Lifting his arm is painful but he is able to do this. There is no numbness, tingling or weakness. No chest pain or shortness on breath. No vision changes or palpitations. No dizziness. He would go to the ER and was prescribed a muscle relaxant which he finds helpful but he is only taking this at night. He states that he was getting a little bit better over the weekend but on Wednesday went to reach for his daughter and states the reaching forward motion exacerbated the pain. -he does complain today of ongoing foot pain. He was referred to Podiatry but never went and states that they told him to get x-rays 1st. He has these ordered and states that he has not yet gotten them.. He states that it is mostly on the heels of his feet and it happens after he has been standing for a long time or if he is sitting and goes to get back up. He states that the pain causes him to have to take a rest. There is no swelling. He has not tried anything other than diabetic shoes. He says it does not feel like it helps. He has tried inserts with no improvement. There is no calf pain, numbness or tingling. Endo: He is on metformin 500 mg twice a day. States that his blood sugars have overall been very normal and nothing has been greater than sixty. -he is on an MITA-inhibitor and statin. Nephro: Overdue for appointment. States that he was supposed to complete labs and follow back up however had to reschedule this because he plan to move to [place] again. He is not sure but he thinks he might be moving in the next month. Kidney function is stable. Understands that he needs to avoid NSAIDs. He has not been consistent with the vitamin-D. [facility] Medical History Depression Anxiety Kidney disease Swelling Diabetes High cholesterol High blood pressure Family History Father Alcohol abuse High blood pressure Maternal Grandfather Asthma High blood pressure High cholesterol Social History (Updated 11/08/24 @ 13:43 by Pam Sandoval CMA) Housing: House Unable to assess alcohol history related to: Unknown Alcohol intake: current Comment: once every six months, one beer Patient Tobacco Use Status: Never used Tobacco e-Cigarette/Vaping Use: Never Used Second Hand Smoke Exposure: No Use of substances other than those prescribed or required for medical reasons: No service: No Current occupational status: employed 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 1. Little interest or pleasure in doing things: more than half the days 2. Feeling down, depressed, or hopeless: nearly every day 3. Trouble falling or staying asleep, or sleeping too much: nearly every day 4. Feeling tired or having little energy: nearly every day 5. Poor appetite or overeating: nearly every day 6. Feeling bad about yourself - or that you are a failure or have let yourself or your family down: nearly every day 7. Trouble concentrating on things, such as reading the newspaper or watching television: nearly every day 8. Moving or speaking so slowly that other people could have noticed. Or the opposite - being so fidgety or restless that you have been moving around a lot more than usual: more than half the days 9. Thoughts that you would be better off or of hurting yourself in some way: not at all Total score: 22 Depression Screening Interpretation: Positive Depression Screening Done: Yes 65203 - PHQ-9 Billing: Yes Source: Developed by Drs. Ji Gallagher, Santa Calderon, Alfred Breaux and colleagues, with an educational charleen from [employer] Thrive Questionnaire Date Thrive assessed: 11/08/24 I am a: Patient What is your living situation today?: I choose not to answer this question Within the past 12 months, did the food you bought not last and you didn't have the money to get more?: I choose not to answer this question Within the past 12 months, did you worry whether your food would run out before you got money to buy more?: I choose not to answer this question Do you have trouble paying for medicines?: Yes Do you have trouble getting transportation to medical appointments?: No Do you have trouble paying your heating and electricity bill?: Yes Do you have trouble taking care of your child, family member or friend?: I choose not to answer this question Do you have trouble with day-to-day activities such as bathing, preparing meals, shopping, managing finances, etc.?: Yes Are you currently unemployed and looking for a job?: Yes Are you interested in more education?: I choose not to answer this question Please select the resources that you would like help with: None Currently or been in a relationship where the following occur: I choose not to answer THRIVE Score: 1 AUDIT C Alcohol Use Questionnaire (AUDIT-C) 1. How often do you have a drink containing alcohol?: Never 3. How often do you have six or more drinks on one occasion?: Never Total Score: 0 TIMOTHY-7 AMB Questionnaire TIMOTHY-7 Date TIMOTHY - 7 assessed: 11/08/24 Feeling nervous, anxious, or on edge: 3 = Nearly every day Not being able to stop or control worryin = More than half the days Worrying too much about different things: 3 = Nearly every day Trouble relaxin = Nearly every day Being so restless that it is hard to sit still: 3 = Nearly every day Becoming easily annoyed or irritable: 3 = Nearly every day Feeling afraid as if something awful might happen: 2 = More than half the days Total TIMOTHY-7 score (0-4 normal; 5-9 mild; 10-14 moderate; 15-21 severe): 19 Source: Developed by Drs. Ji Gallagher, Santa Calderon, Alfred Breaux and colleagues, with an educational charleen from [employer] TIMOTHY-7 Assessment Billing TIMOTHY-7 Assessment Tool: TIMOTHY-7 Assessment 39355 Physical exam (Primary Care) Vital Signs: Last Vital Signs Temp 98.1 F 11/08/24 13:43 Pulse 100 11/08/24 13:43 Resp 16 11/08/24 13:43 BP 146/92 H 11/08/24 13:54 Pulse Ox 94 11/08/24 13:43 Oxygen Delivery Method Room Air 11/08/24 13:43 BMI result Body Mass Index 37.2 Tobacco/Smoking Status: Tobacco use Status Tobacco use date assessed 11/08/24 11/08/24 13:46 Patient Tobacco Use Status Never used Tobacco 11/08/24 13:46 e-Cigarette/Vaping Use Never Used 11/08/24 13:46 PHQ-9: PHQ-9 Score PHQ-9: Total score 22 11/08/24 13:46 Depression Screening Interpretation: Positive Thrive Assessment: Date of Thrive Assessment Date Thrive assessed 11/08/24 11/08/24 13:46 Currently or been in a relationship where the following occur: I choose not to answer Const Orientation/consciousness: patient oriented x3 HENMT Ears: hearing grossly normal bilaterally Neck Thyroid: Thyroid normal Lymphatic: no lymphadenopathy noted Resp Auscultation: clear to auscultation bilaterally Cardio Rate: regular rate Rhythm: regular rhythm Heart sounds: S1 normal heart sound present and S2 normal heart sound present GI Inspection: Yes normal to inspection Palpation (GI): Soft to palpation and Other GI palpation findings present (nontender, no cva tenderness) Auscultation: normoactive bowel sounds Rectal Exam - Male: Yes deferred Back/Spine/Pelvis Cervical Spine: cervical ROM normal, cervical muscular tenderness, No cervical spasm and No Cervical spine tenderness Thoracic/Lumbar Spine: thoracic and lumbar spine normal to inspection, straight leg raise negative bilaterally, pain with thoraco-lumbar ROM, paraspinal muscle tenderness and thoraco-lumbar spasm on the right in the upper thoracic Skin General skin exam: no rashes or lesions noted Neuro General: patient oriented x3, gait normal and no focal motor deficits Motor exam (neuro): 5/5 motor strength present throughout Sensory Exam: double simultaneous stimulation for sensation normal Results Reviewed Results Reviewed: Laboratory Tests 03/09/24 05/04/24 05/09/24 15:45 11:52 12:16 WBC 5.6 RBC 5.50 Hgb 15.1 Hct 44.7 Plt Count 331 Sodium Potassium Chloride Carbon Dioxide Anion Gap BUN Creatinine Estimated GFR Random Glucose Calcium Phosphorus Total Bilirubin 0.3 AST 32 ALT 44 H Alkaline Phosphatase 99 Total Protein 7.0 Albumin 4.4 25-OH Vitamin D Total 17 L PTH Intact 09/02/24 08:13 WBC RBC Hgb Hct Plt Count Sodium 140 Potassium 3.6 Chloride 106 Carbon Dioxide 26 Anion Gap 12 BUN 16 Creatinine 1.27 Estimated GFR > 60 Random Glucose 96 Calcium 9.6 Phosphorus 3.0 Total Bilirubin AST ALT Alkaline Phosphatase Total Protein Albumin 25-OH Vitamin D Total PTH Intact 110.8 H Coding Level of Care Code Est Pt Level 4 (48871) Complex EM visit Add On G2211 Diagnoses Thoracic back pain M54.6 Primary hypertension I10 Hypertension type: primary hypertension Uncontrolled type 2 diabetes mellitus with hyperglycemia E11.65 CKD stage 3 due to type 2 diabetes mellitus E11.22; N18.30 Additional Codes TIMOTHY-7 Assessment Billing - TIMOTHY-7 Assessment Tool: TIMOTHY-7 Assessment 90356 ([id number]) PHQ-9 - 12328 - PHQ-9 Billing: Yes ([id number]) Assessment & Plan Assessment & Plan (1) Thoracic back pain: Code(s): M54.6 - Pain in thoracic spine Category: Medical Plan: We will try Pred taper. Muscle relaxant provided. Discussed risks and benefits and adverse effects of this medication. X-rays ordered. We will follow up pending test results. I have also referred patient to physical therapy. (2) High blood pressure: Code(s): I10 - Essential (primary) hypertension Category: Medical Qualifiers: Hypertension type: primary hypertension Qualified Code(s): I10 - Essential (primary) hypertension Plan: Elevated today but states it is because he is in pain. He is on lisinopril 20 mg and states normal the blood pressures are normal (3) Uncontrolled type 2 diabetes mellitus with hyperglycemia: Code(s): E11.65 - Type 2 diabetes mellitus with hyperglycemia Category: Medical Plan: Overdue for labs. Ordered today. (4) CKD stage 3 due to type 2 diabetes mellitus: Code(s): E11.22 - Type 2 diabetes mellitus with diabetic chronic kidney disease; N18.30 - Chronic kidney disease, stage 3 unspecified Category: Medical Plan: Following with Nephrology. Advised that he needs to take the vitamin-D as directed Orders: Orders XR thoracic spine 3V Today M54.6 - Pain in thoracic spine PT Evaluation and Treatment Today M54.6 - Pain in thoracic spine Complete Blood Count Auto Diff Today E11.22 - Type 2 diabetes mellitus with diabetic chronic kidney disease, E11.65 - Type 2 diabetes mellitus with hyperglycemia, I10 - Essential (primary) hypertension, N18.30 - Chronic kidney disease, stage 3 unspecified Hemoglobin A1c Today E11.22 - Type 2 diabetes mellitus with diabetic chronic kidney disease, E11.65 - Type 2 diabetes mellitus with hyperglycemia, I10 - Essential (primary) hypertension, N18.30 - Chronic kidney disease, stage 3 unspecified, R73.01 - Impaired fasting glucose XR cervical spine 3V Today M54.2 - Cervicalgia Comprehensive [place]. Panel Fast Today E11.22 - Type 2 diabetes mellitus with diabetic chronic kidney disease, E11.65 - Type 2 diabetes mellitus with hyperglycemia, I10 - Essential (primary) hypertension, N18.30 - Chronic kidney disease, stage 3 unspecified TSH reflex Free T4 Today E11.22 - Type 2 diabetes mellitus with diabetic chronic kidney disease, E11.65 - Type 2 diabetes mellitus with hyperglycemia, I10 - Essential (primary) hypertension, N18.30 - Chronic kidney disease, stage 3 unspecified Lipid Panel Today E11.22 - Type 2 diabetes mellitus with diabetic chronic kidney disease, E11.65 - Type 2 diabetes mellitus with hyperglycemia, I10 - Essential (primary) hypertension, N18.30 - Chronic kidney disease, stage 3 unspecified Medications: New cyclobenzaprine 10 mg PO TID 10 days PRN 30 tabs 0RF muscle spasm prednisone take 3 tab po x 3 days, take 2 tab po x 3 days, 1 tab po x 3 days 18 tabs 0RF Discontinued cyclobenzaprine Discontinued Reason: Doctor's Order 10 mg PO BEDTIME PRN 10 tabs 0RF muscle spasm
[2024-11-08 13:43] VITALS: BP 156/78; PULSE 100; RESP 16; TEMP 36.7; O2SAT 94; BMI 37.2
[2024-11-08 13:54] VITALS: BP 146/92
--- OUTSIDE RECORDS SUMMARY | 2024-11-08 14:50 | XMS_ITS | Data Portability ---
Author Organization [facility] - OUTPATIENT - OP Address [address] [place] [address] Assessment Encounter Date Assessment Date Assessment LastModified by Organization Details LastModified Time 09/03/2023 09/03/2023 Voice recognition software has been used to create this document. An attempt to proofread has been made to minimize errors. Total time spent including interview and examine patient and discussing >35 min. [email or web address] Not available 09/04/2023 13:46:05 10/15/2023 10/15/2023 Voice recognition software has been used to create this document. An attempt to proofread has been made to minimize errors. Total time spent including interview and examine patient and discussing >25 min. [email or web address] Not available 10/15/2023 11:37:28 11/05/2023 11/05/2023 Voice recognition software has been used to create this document. An attempt to proofread has been made to minimize errors. Total time spent including interview and examine patient and discussing >25 min. Labs done today: hgA1c, urinalysis microscopic, urine microalbumin; will call pt with results. [email or web address] Not available 2024 15:22:52 11/19/2023 11/19/2023 Voice recognition software has been used to create this document. An attempt to proofread has been made to minimize errors. Total time spent including interview and examine patient and discussing >25 min. [email or web address] Not available 11/12/2023 12:26:28 01/12/2024 01/12/2024 Voice recognition software has been used to create this document. An attempt to proofread has been made to minimize errors. Total time spent including interview and examine patient and discussing >35 min. [email or web address] Not available 01/12/2024 11:10:42 Plan of Treatment Reminders Order Date Submit Date Provider Last Modified By Organization Details Last Modified Time Details Appointments None recorded. Lab CBC w/ auto diff 2023 024 [facility], [address], [place], [address], 4 11:16:13 CMP, serum or plasma 2023 024 [facility], [address], [place], [address], 4 11:16:14 lipid panel, blood 2023 024 [facility], [address], [place], [address], 4 11:16:13 TSH, serum or plasma 2023 024 [facility], [address], [place], [address], 4 11:16:14 HbA1c (hemoglobin A1c), blood 2023 024 [facility], [address], [place], [address], 4 11:19:17 microalbumi n, urine 2023 024 [facility], [address], [place], [address], 4 11:19:18 HbA1c (hemoglobin A1c), blood 2023 024 [facility], [address], [place], [address], 4 14:11:14 microalbumi n, urine 2023 024 [facility], [address], [place], [address], 4 14:11:14 CMP, serum or plasma 2023 024 praful Not available 4 13:58:58 HbA1c (hemoglobin A1c), blood 2023 024 praful Not available 4 13:58:58 microalbumi n, urine 2023 024 skaki Not available 4 13:58:58 glucose, fasting, fingerstick , blood (point of care) 2023 024 [email or web address] Not available 4 11:36:28 Referral diabetic ophthalmolo gy referral - DIABETIC EYE SCREENING 2023 024 [email or web address] [address] [facility], [address] [place], [address], 4 11:26:03 Procedures None recorded. Surgeries None recorded. Imaging electrocard iogram 2023 024 praful Main Office, [address] [place], [address], 4 13:58:58 Medication Orders amlodipine 5 mg tablet 2023 024 [id number], [address] [place], [address], 4 11:16:42 sitagliptin phosphate 50 mg-metformi n 500 mg tablet 2023 024 [id number], [address] [place], [address], 4 11:16:41 clotrimazol e 1 % topical cream 2023 024 [facility] [id number] [facility] [employer], [address] [place], [address], 4 10:45:39 Janumet 50 mg-500 mg tablet 2023 024 [facility] [id number] [facility] [employer], [address] [place], [address], 4 16:57:01 amlodipine 2.5 mg tablet 2023 024 [facility] [id number] [employer], [address] [place], [address], 4 10:45:32 dapaglifloz in propanediol 5 mg tablet 2023 024 [email or web address] 3 [facility] [address] [employer], [address] [place], [address], 10:45:38 amlodipine 2.5 mg tablet 2023 024 [email or web address] 3 [facility] [id number] [facility] [employer], [address] [place], [address], 10:45:29 Patient TargetsNo targets recorded. Patient Instructions Encounter Date Encounter Id Patient Instructions Last Modified By Organization Details Last Modified Time 09/03/2023 [id number] body mass index: care instructions skaki Not available 09/05/2023 13:58:58 learning about healthy weight skaki Not available 09/05/2023 13:58:59 low sodium diet (2,000 milligram): care instructions skaki Not available 09/05/2023 13:58:58 high blood pressure: care instructions skaki Not available 09/05/2023 13:58:59 When You Want to Lose Weight: Care Instructions skaki Not available 09/05/2023 13:58:59 Discussed natura l and expected course of this diagnosis and need to alert me if symptoms do not follow expected course, or if any worse. Reviewed the medication list and reconciled today. Patient understand and agrees to follow the plan. I discussed in depth regarding diagnosis, prognosis and treatment. The patient was given ample opportunity to ask questions. All questions and concerns were addressed. All the meds and their interactions were reviewed with the patient and patient agrees to monitor the side effects all call if noticing any. [email or web address] Not available 09/04/2023 13:46:05 10/15/2023 [id number] prediabetes: car e instructions skaki Not available 01/02/2024 01:53:11 high blood pressure: care instructions skaki Not available 10/15/2023 11:56:15 learning about high blood pressure skaki Not available 10/15/2023 11:56:15 When You Want to Lose Weight: Care Instructions skaki Not available 10/15/2023 11:56:15 body mass index: care instructions skaki Not available 10/15/2023 11:56:15 learning about healthy weight skaki Not available 10/15/2023 11:56:15 Discussed natura l and expected course of this diagnosis and need to alert me if symptoms do not follow expected course, or if any worse. Reviewed the medication list and reconciled today. Patient understand and agrees to follow the plan. I discussed in depth regarding diagnosis, prognosis and treatment. The patient was given ample opportunity to ask questions. All questions and concerns were addressed. All the meds and their interactions were reviewed with the patient and patient agrees to monitor the side effects all call if noticing any. [email or web address] Not available 10/09/2023 11:52:07 11/05/2023 [id number] learning about high blood sugar skaki Not available 11/05/2023 14:11:14 When You Want to Lose Weight: Care Instructions skaki Not available 2024 15:39:16 high blood pressure: care instructions skaki Not available 11/05/2023 14:11:14 learning about high blood pressure skaki Not available 11/05/2023 14:11:14 body mass index: care instructions skaki Not available 2024 15:39:16 learning about healthy weight skaki Not available 2024 15:39:16 Discussed natura l and expected course of this diagnosis and need to alert me if symptoms do not follow expected course, or if any worse. Reviewed the medication list and reconciled today. Patient understand and agrees to follow the plan. I discussed in depth regarding diagnosis, prognosis and treatment. The patient was given ample opportunity to ask questions. All questions and concerns were addressed. All the meds and their interactions were reviewed with the patient and patient agrees to monitor the side effects all call if noticing any. [email or web address] Not available 11/05/2023 13:29:30 11/19/2023 [id number] When You Want to Lose Weight: Care Instructions skaki Not available 11/23/2023 16:57:01 balanitis: care instructions skaki Not available 11/23/2023 16:57:02 high blood pressure: care instructions skaki Not available 11/23/2023 16:57:01 learning about high blood pressure skaki Not available 11/23/2023 16:57:02 type 2 diabetes: care instructions skaki Not available 11/23/2023 16:57:01 diabetes foot health: care instructions skaki Not available 11/23/2023 16:57:01 drug allergy: care instructions skaki Not available 11/23/2023 16:57:01 side effects of medicine: care instructions skaki Not available 11/23/2023 16:57:02 body mass index: care instructions skaki Not available 11/23/2023 16:57:01 learning about healthy weight skaki Not available 11/23/2023 16:57:02 Discussed natura l and expected course of this diagnosis and need to alert me if symptoms do not follow expected course, or if any worse. Reviewed the medication list and reconciled today. Patient understand and agrees to follow the plan. I discussed in depth regarding diagnosis, prognosis and treatment. The patient was given ample opportunity to ask questions. All questions and concerns were addressed. All the meds and their interactions were reviewed with the patient and patient agrees to monitor the side effects all call if noticing any. [email or web address] Not available 11/12/2023 12:26:28 01/12/2024 [id number] snoring: care instructions skaki Not available 01/13/2024 19:24:56 high blood pressure: care instructions skaki Not available 01/12/2024 11:16:14 learning about high blood pressure skaki Not available 01/12/2024 11:16:14 When You Want to Lose Weight: Care Instructions skaki Not available 01/12/2024 11:16:14 healthy lifestyl e changes skaki Not available 01/12/2024 11:16:14 type 2 diabetes: care instructions skaki Not available 01/12/2024 11:16:14 diabetes foot health: care instructions skaki Not available 01/12/2024 11:16:14 body mass index: care instructions skaki Not available 01/12/2024 11:16:13 learning about healthy weight skaki Not available 01/12/2024 11:16:14 D/W pt all the labs in detail from the previous visit. skaki Not available 01/12/2024 11:20:08 Discussed natura l and expected course of this diagnosis and need to alert me if symptoms do not follow expected course, or if any worse. Reviewed the medication list and reconciled today. Patient understand and agrees to follow the plan. I discussed in depth regarding diagnosis, prognosis and treatment. The patient was given ample opportunity to ask questions. All questions and concerns were addressed. All the meds and their interactions were reviewed with the patient and patient agrees to monitor the side effects all call if noticing any. Not available 01/11/2024 20:01:42 Reason for Referral Diabetic Ophthalmology Refer ral for Hyperglycemia due to type 2 diabetes mellitus DIABETIC EYE SCREENING Referring Physician: Gabriela Beauchamp, Internal Medicine, Encounter Date: 01/12/2024 Results Created Date Observation Date Name Description Value Unit Range Abnormal Flag Note LastModifiedBy Organization Detail LastModifiedTime 11/05/19 24 11/05/2023 MICRO ALBUM IN W/CRE ATINI NE RATIO , RANDO M URINE microalbumin , urine 6.8 mg/dL 0.0-1. 8 high Not Available [facility] (Lab) [address] [place], [address], 11/06/2023 01:09:04 11/05/19 24 11/05/2023 MICRO ALBUM IN W/CRE ATINI NE RATIO , RANDO M URINE creatinine, urine 185.9 mg/dL R-No refer ence range estab lishe d for this assay Not Available [facility] (Lab) [address], [place], [address], 11/06/2023 01:09:04 11/05/19 24 11/05/2023 MICRO ALBUM IN W/CRE ATINI NE RATIO , RANDO M URINE microalbumin /creatinine ratio 37 mg/g 0-29 high Not Available [facility] (Lab) [address], [place], [address], 11/06/2023 01:09:04 11/05/19 24 11/05/2023 URINA LYSIS , WITH MICRO SCOPI C color, urine YELLOW Not Available [facility] (Lab) [address], [place], [address], 11/06/2023 01:09:05 11/05/19 24 11/05/2023 URINA LYSIS , WITH MICRO SCOPI C clarity, urine CLEAR Not Available [facility] (Lab) [address], [place], [address], 11/06/2023 01:09:05 11/05/19 24 11/05/2023 URINA LYSIS , WITH MICRO SCOPI C specific gravity, urine 1.023 . 1.005- 1.035 Not Available [facility] (Lab) [address], [place], [address], 11/06/2023 01:09:05 11/05/19 24 11/05/2023 URINA LYSIS , WITH MICRO SCOPI C pH, urine 5.5 . 5.0-7. 0 Not Available [facility] (Lab) [address], [place], [address], 11/06/2023 01:09:05 11/05/19 24 11/05/2023 URINA LYSIS , WITH MICRO SCOPI C protein, UA 20 mg/dL negati ve, 10-20 Not Available [facility] (Lab) [address] [place], [address], 11/06/2023 01:09:05 11/05/19 24 11/05/2023 URINA LYSIS , WITH MICRO SCOPI C glucose, urine 50 mg/dL normal , negati ve abnormal Not Available [facility] (Lab) [address] [place], [address], 11/06/2023 01:09:05 11/05/19 24 11/05/2023 URINA LYSIS , WITH MICRO SCOPI C ketones, urine NEGATI VE mg/dL negati ve Not Available [facility] (Lab) [address] [place], [address], 11/06/2023 01:09:05 11/05/19 24 11/05/2023 URINA LYSIS , WITH MICRO SCOPI C bilirubin, urine NEGATI VE negati ve Not Available [facility] (Lab) [address], [place], [address], 11/06/2023 01:09:05 11/05/19 24 11/05/2023 URINA LYSIS , WITH MICRO SCOPI C blood, urine TRACE negati ve abnormal Not Available [facility] (Lab) [address], [place], [address], 11/06/2023 01:09:05 11/05/19 24 11/05/2023 URINA LYSIS , WITH MICRO SCOPI C nitrite, urine NEGATI VE negati ve Not Available [facility] (Lab) [address], [place], [address], 11/06/2023 01:09:05 11/05/19 24 11/05/2023 URINA LYSIS , WITH MICRO SCOPI C leukocyte esterase, urine 75 alexi/u L negati ve abnormal Not Available [facility] (Lab) [address], [place], [address], 11/06/2023 01:09:05 11/05/19 24 11/05/2023 URINA LYSIS , WITH MICRO SCOPI C urobilinogen , urine NORMAL mg/dL normal , <2.0 Not Available [facility] (Lab) [address], [place], [address], 11/06/2023 01:09:05 11/05/19 24 11/05/2023 URINA LYSIS , WITH MICRO SCOPI C RBC, urine 0-2 /hpf none, 0-2 Not Available [facility] (Lab) [address], [place], [address], 11/06/2023 01:09:05 11/05/19 24 11/05/2023 URINA LYSIS , WITH MICRO SCOPI C WBC, urine 6-9 /hpf none, 0-5 abnormal Not Available [facility] (Lab) [address], [place], [address], 11/06/2023 01:09:05 11/05/19 24 11/05/2023 URINA LYSIS , WITH MICRO SCOPI C squamous epithelial cells, urine TRACE /hpf none abnormal Not Available [facility] (Lab) [address], [place], [address], 11/06/2023 01:09:05 11/05/19 24 11/05/2023 URINA LYSIS , WITH MICRO SCOPI C bacteria, urine NONE /hpf none Not Available [facility] (Lab) [address], [place], [address], 11/06/2023 01:09:05 11/05/19 24 11/05/2023 URINA LYSIS , WITH MICRO SCOPI C hyaline cast, urine NONE /lpf none, 0-2 Not Available [facility] (Lab) [address], [place], [address], 11/06/2023 01:09:05 11/05/19 24 11/05/2023 URINA LYSIS , WITH MICRO SCOPI C calcium oxalate crystal, urine FEW /hpf none abnormal Not Available [facility] (Lab) [address], [place], [address], 11/06/2023 01:09:05 11/05/19 24 11/05/2023 HEMOG LOBIN A1C hemoglobin A1C 7.1 % 0-5.6 high The Ameri can Diabe ray Assoc iatio n recom mends that a prima ry goal of thera shiraz temple be a HBA1C of < 7% and that physi bree temple reeva luate the treat ment regim en in patie nts with HBA1C value s consi stent ly > 8%. <5.7% Asndy l 5.7 - 6.4% Incre ased risk for diabe ray >=6.5 % Diagn ostic of diabe ray <7.0% Goal of thera py >8.0% Actio n jann sted Not Available [facility] (Lab) [address], [place], [address], 11/06/2023 02:28:08 01/12/20 24 01/12/2024 CBC W/DIF F WBC 4.4 10'3/ uL 3.5-10 .5 Not Available [facility] (Lab) [address], [place], [address], 01/13/2024 00:49:17 01/12/20 24 01/12/2024 CBC W/DIF F RBC 5.58 10'6/ uL (based on docume nted legal sex) 4.30-5 .80 Not Available [facility] (Lab) [address], [place], [address], 01/13/2024 00:49:17 01/12/20 24 01/12/2024 CBC W/DIF F HGB 15.1 g/dL (based on docume nted legal sex) 13.0-1 7.5 Not Available [facility] (Lab) [address], [place], [address], 01/13/2024 00:49:17 01/12/20 24 01/12/2024 CBC W/DIF F HCT 48.6 % (based on docume nted legal sex) 38.0-5 0.0 Not Available [facility] (Lab) [address], [place], [address], 01/13/2024 00:49:17 01/12/20 24 01/12/2024 CBC W/DIF F MCV 87.1 fL 80.0-9 9.0 Not Available [facility] (Lab) [address], [place], [address], 01/13/2024 00:49:17 01/12/20 24 01/12/2024 CBC W/DIF F MCH 27.1 pg 27.0-3 4.0 Not Available [facility] (Lab) [address], [place], [address], 01/13/2024 00:49:17 01/12/20 24 01/12/2024 CBC W/DIF F MCHC 31.1 g/dL 32.0-3 5.5 low Not Available [facility] (Lab) [address], [place], [address], 01/13/2024 00:49:17 01/12/20 24 01/12/2024 CBC W/DIF F RDW 14.3 % 11.0-1 5.0 Not Available [facility] (Lab) [address], [place], [address], 01/13/2024 00:49:17 01/12/20 24 01/12/2024 CBC W/DIF F plt 335 10'3/ uL 150-40 0 Not Available [facility] (Lab) [address], [place], [address], 01/13/2024 00:49:17 01/12/20 24 01/12/2024 CBC W/DIF F MPV 9.6 fL 8.8-12 .1 Not Available [facility] (Lab) [address], [place], [address], 01/13/2024 00:49:17 01/12/20 24 01/12/2024 CBC W/DIF F NRBC's 0.0 % 0.0 Not Available [facility] (Lab) [address], [place], [address], 01/13/2024 00:49:17 01/12/20 24 01/12/2024 CBC W/DIF F absolute NRBCs 0.0 10'3/ uL no refere nce range establ ished Not Available [facility] (Lab) [address], [place], [address], 01/13/2024 00:49:17 01/12/20 24 01/12/2024 CBC W/DIF F neutrophils 37.8 % 34.0-7 3.0 Not Available [facility] ([facility]) [address], [place], [address], 01/13/2024 00:49:17 01/12/20 24 01/12/2024 CBC W/DIF F lymphocytes 47.7 % 15.0-5 0.0 Not Available [facility] ([facility]) [address], [place], [address], 01/13/2024 00:49:17 01/12/20 24 01/12/2024 CBC W/DIF F monocytes 9.5 % 1.0-15 .0 Not Available [facility] (Lab) [address], [place], [address], 01/13/2024 00:49:17 01/12/20 24 01/12/2024 CBC W/DIF F eosinophils 3.9 % 0.0-8. 0 Not Available [facility] (Lab) [address], [place], [address], 01/13/2024 00:49:17 01/12/20 24 01/12/2024 CBC W/DIF F basophils 0.9 % 0.0-2. 0 Not Available [facility] (Lab) [address], [place], [address], 01/13/2024 00:49:17 01/12/20 24 01/12/2024 CBC W/DIF F immature granulocytes 0.2 % no define d refere nce range Not Available [facility] (Lab) [address] [place], [address], 01/13/2024 00:49:17 01/12/20 24 01/12/2024 CBC W/DIF F absolute neutrophils 1.7 10'3/ uL 1.5-8. 0 Not Available [facility] (Lab) [address] [place], [address], 01/13/2024 00:49:17 01/12/20 24 01/12/2024 CBC W/DIF F absolute lymphocytes 2.1 10'3/ uL 1.0-4. 0 Not Available [facility] (Lab) [address], [place], [address], 01/13/2024 00:49:17 01/12/20 24 01/12/2024 CBC W/DIF F absolute monocytes 0.4 10'3/ uL 0.2-1. 0 Not Available [facility] (Lab) [address], [place], [address], 01/13/2024 00:49:17 01/12/20 24 01/12/2024 CBC W/DIF F absolute eosinophils 0.2 10'3/ uL 0.0-0. 6 Not Available [facility] (Lab) [address], [place], [address], 01/13/2024 00:49:17 01/12/20 24 01/12/2024 CBC W/DIF F absolute basophils 0.0 10'3/ uL 0.0-0. 3 Not Available [facility] (Lab) [address], [place], [address], 01/13/2024 00:49:17 01/12/20 24 01/12/2024 CBC W/DIF F absolute immature granulocytes 0.0 10'3/ uL 0.00-0 .10 11:46 PM: P indic ates parti al resul ts on a panel have been relea sed. Addit ional resul ts will follo w. 11:46 PM: This resul t has been final verif ied. No addit ional or evans ed resul ts are expec reji. Not Available [facility] (Lab) [address], [place], [address], 01/13/2024 00:49:17 01/12/20 24 01/12/2024 LIPID PANEL ,AMA (LDL- CALC) total cholesterol 182 mg/dL 0-199 Not Available [facility] (Lab) [address], [place], [address], 01/13/2024 01:32:15 01/12/2001/12/2024 LIPID PANEL ,AMA (LDL- CALC) triglyceride s 145 mg/dL 0-150 NCEP Refer ence Value s for Trigl yceri husam: Sandy l: <150 mg/dL Borde rline High: 150 - 199 mg/dL High: 200 - 499 mg/dL Very High: >/= 500 mg/dL Not Available [facility] (Lab) [address], [place], [address], 01/13/2024 01:32:15 01/12/2001/12/2024 LIPID PANEL ,AMA (LDL- CALC) HDL cholesterol 35 mg/dL >40 low Not Available [facility] (Lab) [address] [place], [address], 01/13/2024 01:32:15 01/12/20 24 01/12/2024 LIPID PANEL ,AMA (LDL- CALC) LDL cholesterol 121 mg/dL 0-99 high Cutof f value s recom belinda d by the Natio nal Mary stero l Educa tion Progr am: CAMMY ABLE: Mary stero l <200 mg/dL LDL <100 mg/dL BORDE RLINE : Mary stero l 200-2 39 mg/dL LDL 101-1 59 mg/dL HIGHE R RISK: Mary stero l >240 mg/dL LDL >160 mg/dL , HDL <40 mg/dL Not Available [facility] (Lab) [address] [place], [address], 01/13/2024 01:32:15 01/12/2001/12/2024 LIPID PANEL ,AMA (LDL- CALC) non-HDL cholesterol 147 mg/dL no refere nce range A reaso nable goal for non-H DL mary stero l is one that is 30 mg/dL highe r than the LDL mary stero l goal. Not Available [facility] (Lab) [address], [place], [address], 01/13/2024 01:32:15 01/12/20 24 01/12/2024 LIPID PANEL ,AMA (LDL- CALC) chol/HDL ratio 5.2 . 0.0-5. 0 high On November 03, 2022, [facility] labor atori robbi evans ed the equat ion for calcu latin g estim ated low-d ensit y lipop rotei n-cho leste rol (LDL- C) from the Fried jaqui equat ion to the Marlee n/Hop kins equat ion. This new equat ion is only valid for lipid panel s with trigl yceri husam < 400 mg/dL . Studi es have demon strat ed that this new equat ion will impro ve the accur acy of LDL-C , espec ially in scena wise when LDL-C kaylan ntrat ions are relat ively low (< 100 mg/dL ), trigl yceri husam are eleva reji, or patie nt is non-f astin g. Refer ences : - Marlee damon, Harinder Weiss, Jesus Manuel Teague , [facility] davis al, Elvin Alberto, Richard Sales. Channing velasquez , and Alexander Monk . 2013. Comp ariso n of a Novel Metho d vs the Fried jaqui Equat ion for Estim ating Low-D ensit y Lipop rotei n Mary stero l Level s from the Stand thai Lipid Profi le. OSMAR: The Journ al of the Ameri can Medic al Assoc iatio n 310 (19): 2060- . - Prasanna valles V, Leticia J, Xuan valles A, Lul M, Mohsen e R, Gunnar valles E, Channing velasquez RS, Lacho SR, Marele damon SS. Fast ing Versu s Nonfa sting and Low-D ensit y Lipop rotei n Mary stero l Accur acy. Circu latmargaret n. 2017Jul 13;137 (1):1 0-19. Not Available [facility] (Lab) [address], [place], [address], 01/13/2024 01:32:15 01/12/20 24 01/12/2024 CMP(C OMPRE HENSI VE METAB OLIC PANEL ) sodium 139 mmol/ L 133-14 6 Not Available [facility] (Lab) [address], [place], [address], 01/13/2024 01:32:17 01/12/20 24 01/12/2024 CMP(C OMPRE HENSI VE METAB OLIC PANEL ) potassium 3.9 mmol/ L 3.5-5. 1 Not Available [facility] (Lab) [address] [facility], [place], [address], 01/13/2024 01:32:17 01/12/20 24 01/12/2024 CMP(C OMPRE HENSI VE METAB OLIC PANEL ) chloride 103 mmol/ L 98-107 Not Available [facility] (Lab) [address] [facility], [place], [address], 01/13/2024 01:32:17 01/12/20 24 01/12/2024 CMP(C OMPRE HENSI VE METAB OLIC PANEL ) carbon dioxide 28 mmol/ L 21-31 Not Available [facility] (Lab) [address] [facility], [place], [address], 01/13/2024 01:32:17 01/12/20 24 01/12/2024 CMP(C OMPRE HENSI VE METAB OLIC PANEL ) anion gap 8 mmol/ L 4-13 Not Available [facility] (Lab) [address] [facility], [place], [address], 01/13/2024 01:32:17 01/12/20 24 01/12/2024 CMP(C OMPRE HENSI VE METAB OLIC PANEL ) blood urea nitrogen 17 mg/dL 7-25 Not Available [facility] (Lab) [address] [facility], [place], [address], 01/13/2024 01:32:17 01/12/20 24 01/12/2024 CMP(C OMPRE HENSI VE METAB OLIC PANEL ) creatinine 1.55 mg/dL 0.60-1 .30 high Not Available [facility] (Lab) [address] [facility], [place], [address], 01/13/2024 01:32:17 01/12/20 24 01/12/2024 CMP(C OMPRE HENSI VE METAB OLIC PANEL ) egfrcr (CKD-epi 2020) 58 mL/mi n/1.7 3_m2 >=60 low Not Available [facility] (Lab) [address] [facility], [place], [address], 01/13/2024 01:32:17 01/12/20 24 01/12/2024 CMP(C OMPRE HENSI VE METAB OLIC PANEL ) calcium 9.6 mg/dL 8.3-10 .5 Not Available [facility] (Lab) [address] [facility], [place], [address], 01/13/2024 01:32:17 01/12/20 24 01/12/2024 CMP(C OMPRE HENSI VE METAB OLIC PANEL ) glucose 101 mg/dL 70-100 high Not Available [facility] (Lab) [address] [facility], [place], [address], 01/13/2024 01:32:17 01/12/20 24 01/12/2024 CMP(C OMPRE HENSI VE METAB OLIC PANEL ) protein, total 6.9 g/dL 6.4-8. 3 Not Available [facility] (Lab) [address] [facility], [place], [address], 01/13/2024 01:32:17 01/12/20 24 01/12/2024 CMP(C OMPRE HENSI VE METAB OLIC PANEL ) albumin 4.5 g/dL 3.5-5. 0 Not Available [facility] (Lab) [address] [facility], [place], [address], 01/13/2024 01:32:17 01/12/20 24 01/12/2024 CMP(C OMPRE HENSI VE METAB OLIC PANEL ) ALT 41 units /L 11-51 Not Available [facility] (Lab) [address] [facility], [place], [address], 01/13/2024 01:32:17 01/12/20 24 01/12/2024 CMP(C OMPRE HENSI VE METAB OLIC PANEL ) alkaline phosphatase 93 units /L 34-104 Not Available [facility] (Lab) [address] [facility], [place], [address], 01/13/2024 01:32:17 01/12/20 24 01/12/2024 CMP(C OMPRE HENSI VE METAB OLIC PANEL ) AST 32 units /L 13-39 Not Available [facility] (Lab) [address] [facility], [place], [address], 01/13/2024 01:32:17 01/12/20 24 01/12/2024 CMP(C OMPRE HENSI VE METAB OLIC PANEL ) bilirubin, total 0.5 mg/dL 0.2-1. 2 Not Available [facility] (Lab) [address] [facility], [place], [address], 01/13/2024 01:32:17 01/12/20 24 01/12/2024 TSH TSH 0.98 uIU/m L 0.30-5 .33 Not Available [facility] (Lab) [address] [facility], [place], [address], 01/13/2024 01:36:14 01/12/20 24 01/12/2024 MICRO ALBUM IN W/CRE ATINI NE RATIO , RANDO M URINE microalbumin , urine 2.7 mg/dL 0.0-1. 8 high Not Available [facility] (Lab) [address] [place], [address], 01/13/2024 01:45:08 01/12/20 24 01/12/2024 MICRO ALBUM IN W/CRE ATINI NE RATIO , RANDO M URINE creatinine, urine 224.4 mg/dL R-No refer ence range estab lishe d for this assay Not Available [facility] (Lab) [address] [facility], [place], [address], 01/13/2024 01:45:08 01/12/20 24 01/12/2024 MICRO ALBUM IN W/CRE ATINI NE RATIO , RANDO M URINE microalbumin /creatinine ratio 12 mg/g 0-29 Not Available [facility] (Lab) [address] [facility], [place], [address], 01/13/2024 01:45:08 01/12/20 24 01/12/2024 HEMOG LOBIN A1C hemoglobin A1C 6.1 % 0-5.6 high The [employer] can [employer] n recom mends that a prima ry goal of thera py shoul d be a HBA1C of < 7% and that physi cians shoul d reeva luate the treat ment regim en in patie nts with HBA1C value s consi stent ly > 8%. <5.7% Sandy l 5.7 - 6.4% Incre ased risk for diabe ray >=6.5 % Diagn ostic of diabe ray <7.0% Goal of thera py >8.0% Actio n sugge sted Not Available [facility] (Lab) [address] [facility], [place], [address], 01/13/2024 01:53:15 09/04/19 24 elect rocar diogr am No observ ation record ed. [email or web address] Not Available 2023 13:25:03 09/05/19 24 elect rocar diogr am No observ ation record ed. [email or web address] Main Office [address], [place], [address], 09/05/2023 13:57:46 Result Notes None recorded. Problems Name Problem SNOMED Code Status Onset Date Resolution Date Notes Provider Name and Address Organization Details Recorded Time Atypical chest pain 962823520 Active Gabriela Beauchamp MD [address], [place], [address], [place] - [facility] 4 13:48:19 Hyperglycem ia 98623653 Active Gabriela Beauchamp MD [address], [place], [address], [facility] - [facility] 4 13:48:46 Morbid obesity 321918031 Active Gabriela Beauchamp MD [address], [place], [address], [facility] - [facility] 4 13:48:57 Polyuria 07167552 Active Gabriela Beauchamp MD [address], [place], [address], [facility] - [facility] 4 13:49:06 Seasonal allergic rhinitis 738736336 Active Gabriela Beauchamp MD [address], [place], [address], [facility] 4 13:49:15 Essential hypertensio n 48053027 Active 2023 Gabriela Beauchamp MD [address], [place], [address], [facility] - [facility] 4 11:28:58 Prediabetes 414323050 Active 2023 Gabriela Beauchamp MD [address], [place], [address], [facility] 4 11:50:39 Chronic kidney disease stage 3A 294864357 Active 2023 Gabriela Beauchamp MD [address], [place], [address], [facility] - [facility] 4 14:08:41 Hyperglycem ia due to type 2 diabetes mellitus 4984601609800 09 Active 2023 Gabriela Beauchamp MD [address], [place], [address], [facility] - [facility] 4 10:30:30 Balanitis 54791540 Active 2023 Gabriela Beauchamp MD [address] , [place], [address], [facility] 4 16:42:51 Adverse reaction to drug 73559153 Active 2023 Gabriela Beauchamp MD [address] , [place], [address], [facility] 4 16:46:13 Mixed hyperlipide ari due to type 2 diabetes mellitus 923368711609 Active 2023 Gabriela Beauchamp MD [address] , [place], [address], [facility] 15:16:39 Snoring 71185635 Active 2023 Gabriela Beauchamp MD [address] , [place], [address], [facility] 19:24:28 Problem Notes None recorded. Procedures Surgical History None recorded. Imaging Results Imaging Date Name Status LastModified by Organization Details LastModified Time 09/04/2023 electrocardiogram completed Informa tion not available 09/05/2023 13:25:03 09/05/2023 electrocardiogram completed [email or web address] Main [facility] [address] , [place], [address], 09/05/2023 13:57:46 Procedure Notes None recorded. Medical Equipment None Reported. Allergies Allergen ID Allergen Name Allergen Category Reaction Reaction Severity Criticality Documentation Date Start Date Code Code System Note Provider Name and Address Organization Details Recorded Time 4622 [facility] n Not available Not available Not available 11/19/2023 58863 72 RxNorm penis swell ing Gabriela Beauchamp MD [address], [place], [address], [facility] 12:49:03 Medications Name Sig Start Date Stop Date Status Note LastModified by Organization Details LastModified Time cyclobenz aprine 10 mg tablet TAKE 1 TABLET BY MOUTH THREE TIMES DAILY FOR 5 DAYS NEEDED active Not Available Not Available No t Available amlodipin e 2.5 mg tablet Take 1 tablet every day by oral route for 30 days. 2023 active Not Available Not Available Not Avai lable Zyrtec 10 mg tablet Take 1 tablet every day by oral route. active Not Available Not Available No t Available amlodipin e 5 mg tablet TAKE 1 TABLET BY MOUTH EVERY DAY FOR 30 DAYS active Not Available Not Available No t Available ondansetr on 8 mg disintegr ating tablet 01/11 completed Not Available Not Available Not Available meclizine 25 mg tablet 01/11 completed Not Available Not Available Not Available simvastat in 20 mg tablet TAKE 1 TABLET EVERY DAY BY ORAL ROUTE AT BEDTIME FOR 30 DAYS, FOR HIGH CHOLESTE ROL. active Not Available Not Available No t Available dexametha sone 4 mg tablet TAKE 1 TABLET BY MOUTH TWICE DAILY FOR 3 DAYS 11/04 completed Not Available Not Available Not Available polymyxin B sulfate 10,000 unit-trim ethoprim 1 mg/mL eye drops 01/11 completed Not Available Not Available Not Available hydroxyzi ne HCl 25 mg tablet TAKE 1 TABLET BY MOUTH EVERY 8 HOURS NEEDED FOR ANXIETY 01/11 completed Not Available Not Available Not Available methylpre dnisolone 4 mg tablets in a dose pack FOLLOW PACKAGE DIRECTIO NS active Not Available Not Available No t Available amoxicill in 875 mg-potass ium clavulana te 125 mg tablet TAKE 1 TABLET BY MOUTH TWICE DAILY 11/14 completed Not Available Not Available Not Available Janumet 50 mg-500 mg tablet Take by oral route for 30 days. active Not Available Not Available No t Available Contour Next Test Strips Take by miscell. route for 100 days. active Not Available Not Available No t Available Farxiga 10 mg tablet Take by oral route for 30 days. 01/11 completed Not Available Not Available Not Available dapaglifl ozin propanedi ol 5 mg tablet Take 1 tablet every day by oral route for 30 days. 01/11 completed SAMPLES GIVEN Not Available Not Available Not Available Vitals Date Recorded Body height Heart rate Body temperature Body mass index (BMI) Body weight Systolic blood pressure Diastolic blood pressure Provider Name and Address Organization Details Last Updated DateTime 4 167.64 cm 98 /min 98.1 [degF] 41.7 kg/m2 386599. 99 g 165 mm[Hg] 102 mm[Hg] Gabrieal Beauchamp MD [address] [facility], [place], [address], [facility] 4 13:47:03 Date Recorded Body height Heart rate Body temperature Body mass index (BMI) Body weight Oxygen saturation Oxygen saturation in Arterial blood by Pulse oximetry Systolic blood pressure Diastolic blood pressure Provider Name and Address Organization Details Last Updated DateTime 4 167.64 cm 80 /min 98 [degF] 38.8 kg/m2 827943. 61 g 95 % 95 % 158 mm[Hg] 97 mm[Hg] [facility] 4 11:25:32 Date Recorded Body height Body temperature Oxygen saturation Oxygen saturation in Arterial blood by Pulse oximetry Heart rate Body mass index (BMI) Body weight Systolic blood pressure Diastolic blood pressure Provider Name and Address Organization Details Last Updated DateTime 4 167.64 cm 98.4 [degF] 97 % 97 % 82 /min 39.1 kg/m2 404323. 35 g 146 mm[Hg] 104 mm[Hg] [facility] 4 13:41:49 Date Recorded Body height Heart rate Body temperature Body mass index (BMI) Body weight Oxygen saturation Oxygen saturation in Arterial blood by Pulse oximetry Systolic blood pressure Diastolic blood pressure Provider Name and Address Organization Details Last Updated DateTime 4 167.64 cm 103 /min 97.6 [degF] 38.1 kg/m2 299096. 08 g 99 % 99 % 154 mm[Hg] 101 mm[Hg] KAVITHA [facility] 4 11:41:46 Date Recorded Body height Body mass index (BMI) Body weight Oxygen saturation Oxygen saturation in Arterial blood by Pulse oximetry Body temperature Heart rate Systolic blood pressure Diastolic blood pressure Provider Name and Address Organization Details Last Updated DateTime 4 167.64 cm 37.9 kg/m2 546794. 49 g 99 % 99 % 98.1 [degF] 82 /min 159 mm[Hg] 89 mm[Hg] KAVITHA FRANCES [place] - [facility] 10:48:16 Social History Question Answer Notes LastModified by Organizat ion Details LastModified Time Tobacco Smoking Status Never Smoker Gabriela Beauchamp MD [address] [facility], [place], [address], [facility] - [facility] 09/04/2023 13:50:56 What Is Your Level Of Alcohol Consumption? Occasional Information not available 09/04/2023 Are You Blind Or Do You Have Difficulty Seeing? Yes [email or web address] Information not available 11/19/2023 In The 14 Days Before Symptom Onset, Have You Had Close Contact With A Laboratory-confir med COVID-19 While That Case Was Ill? No Information not available 09/04/2023 In The 14 Days Before Symptom Onset, Have You Had Close Contact With A Person Who Is Under Investigation For COVID-19 While That Person Was Ill? No Information not available 09/04/2023 Have You Been To An Area Known To Be High Risk For COVID-19? No Information not available 09/04/2023 Are You Currently Employed? Yes [email or web address] Information not available 11/19/2023 Are You Deaf Or Do You Have Serious Difficulty Hearing? No [email or web address] Information not available 11/19/2023 Have You Processed Blood Or Body Fluids From An Ebola Virus Disease Patient Without Appropriate PPE? No Information not available 09/04/2023 Do You Reside In Or Have You Traveled To An Area Where Ebola Virus Transmission Is Active? 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 No Information not available 09/04/2023 What Was The Date Of Your Most Recent Tobacco Screening? 01/12/2024 [email or web address] Information not available 01/12/2024 How Many Children Do You Have? 2 1 Boy 1 Girl [email or web address] Information not available 11/19/2023 Are There Any Occupational Health Risks Where You Work? Yes [email or web address] Information not available 11/19/2023 Do You Have Any Pets? No [email or web address] Information not available 11/19/2023 What Is Your Relationship Status? Single Information not available 11/19/2023 Do You Use Your Seat Belt Or Car Seat Routinely? Yes [email or web address] Information not available 11/19/2023 Are You Sexually Active? No [email or web address] Information not available 11/19/2023 Do You Feel Stressed (tense, Restless, Nervous, Or Anxious, Or Unable To Sleep At Night)? [id number] [email or web address] Information not available 11/19/2023 Do You Use Any Illicit Or Recreational Drugs? No Information not available 09/04/2023 Do You Or Have You Ever Used Any Other Forms Of Tobacco Or Nicotine? No Information not available 09/04/2023 Sex: Unknown Functional Status Question Answer Note LastModified by Organizat ion Details LastModified Time Do you have difficulty walking or climbing stairs? Yes [email or web address] Information not available 11/19/2023 Do you have transportation difficulties? No [email or web address] Information not available 11/19/2023 Are you able to walk? YESWOREST [email or web address] Information not available 11/19/2023 Do you have difficulty doing errands alone? No [email or web address] Information not available 11/19/2023 Are you able to care for yourself? Yes [email or web address] Information n ot available 11/19/2023 Do you have difficulty dressing or bathing? Yes a little bit. [email or web address] Information not available 11/19/2023 Mental Status Question Answer Note LastModified by Organization D etails LastModified Time Do you have difficulty concentrating, remembering or making decisions? Yes Information no t available 11/19/2023 Family History Relationship Description Onset Age of this Age Resolved Age Notes LastModified by Organization Details LastModified Time Paternal Grandfather Diabetes mellitus grandf ather 6 years ago skaki Not available 09/04/2023 13:49:47 Father Hypertensive disorder dad in 2007 [email or web address] Not available 01/12/2024 10:38:44 Father Alcoholism [email or web address] Not avail able 01/12/2024 10:38:44 Notes:1 sister health issues unknown had few blood transfusion. No colon or prostate cancer in family Medical History No medical history recorded. Past Encounters Encounter ID Performer Location Encounter Start Date Encounter Closed Date Diagnosis/Indication Diagnosis SNOMED-CT Code Diagnosis ICD10 Code Diagnosis Note [id number] Gabriela Beauchamp MD Main Office [address] [place] [address] 09/04/2023 13:45:04 09/05/2023 18:23:32 Polyuria 60035046 R35.89 most likely related to diabetes. we'll check his blood test results from today and started treatment appropriat kingsley.Encour aged him to continue doing blood sugar testing. Elevated blood-pressure reading without diagnosis of hypertension 599416035 R03.0 normal EKG and blood pressure elevated. We'll check his blood test results especially because functions and start him on blood pressure medication .Encourage d him to start on low-salt diet. Morbid obesity 026078059 E66.01 1. Patient has history of morbid obesity and has been counseled to continue a low-fat low-calori e diet. 2. Specifical ly this month I have advised the patient to focus on keeping active and continue current plan. We also discussed behavior modificati ons with respect to encourage dietary behaviors suggest taking smaller bites, eating slower. 3. Encouraged and discussed plan of increased exercise and daily activity and gradually increasing time in intensity as tolerated. 4. The patient has been reminded to avoid caffeinate d, carbonated , and sugary beverages. Limit high sugar and fat containing foods. Increase water consumptio n to at least 32 ounce daily. 5. Patient has been counseled that significan t sustained weight loss will greatly affect and improve the patient's comorbidit ies. Body mass index 40+ - severely obese 723175728 Z68.41 Family his tory of diabetes mellitus type 2 264677499 Z83.3 we will check his blood test results for further evaluation . Hepatitis C screening 41 4783750 Z11.59 hepatitis C antibody screening ordered. [id number] Gabriela Beauchamp MD Main Office [address] [place] [address] 10/15/2023 10:58:00 10/15/2023 12:03:29 Morbid obesity 817787316 E66.01 1. Patient has history of morbid obesity and has been counseled to continue a low-fat low-calori e diet. 2. Specifical ly this month I have advised the patient to focus on keeping active and continue current plan. We also discussed behavior modificati ons with respect to encourage dietary behaviors suggest taking smaller bites, eating slower. 3. Encouraged and discussed plan of increased exercise and daily activity and gradually increasing time in intensity as tolerated. 4. The patient has been reminded to avoid caffeinate d, carbonated , and sugary beverages. Limit high sugar and fat containing foods. Increase water consumptio n to at least 32 ounce daily. 5. Patient has been counseled that significan t sustained weight loss will greatly affect and improve the patient's comorbidit ies. Essential hypertension 54418069 I10 BP Today in office 158/97, pulse 80 Body mass index 30+ - obesity 285323486 Z68.38 Prediabetes 799958191 R7 3.03 encouraged to come for fasting blood work to rule out diabetes. Reviewed his labs from 09/04/2023 [id number] Gabriela Beauchamp MD Main Office [address] [facility] [place] [address] 11/05/2023 13:20:04 11/05/2023 14:28:23 Essential hypertension 86126809 I10 BP Today in office 146/104, pulse 82, change amlodipine to 2.5 mg twice daily because of dizziness. Hyperglycemia 61221090 R 73.9 Will call pt with results. Polyuria 36038990 R35.89 Urinalysis micro and microalbum in was sent out today. Will await results. Chronic ki dney disease stage 3A 702626484 N18.31 GFR 59 yesterday at the ED. Body mass index 30+ - obesity 221375126 Z68.39 Encouraged patient to watch portion sizes, eat variety of healthy food/veget bessie/frui ts and keep active, 30 minutes every day. Morbid obesity 248085823 E66.01 1. Patient has history of morbid obesity and has been counseled to continue a low-fat low-calori e diet.2. Specifical ly this month I have advised the patient to focus on keeping active and continue current plan. We also discussed behavior modificati ons with respect to encourage dietary behaviors suggest taking smaller bites, eating slower.3. Encouraged and discussed plan of increased exercise and daily activity and gradually increasing time in intensity as tolerated. 4. The patient has been reminded to avoid caffeinate d, carbonated , and sugary beverages. Limit high sugar and fat containing foods. Increase water consumptio n to at least 32 ounce daily.5. Patient has been counseled that significan t sustained weight loss will greatly affect and improve the patient's comorbidit ies. [id number] Gabriela Beauchamp MD Main Office [address] [facility] [address] 11/19/2023 11:34:52 11/19/2023 12:59:59 Essential hypertension 45076048 I10 BP Today in office 154/101. The patient states his blood pressure at home has been much more stable. Encouraged to continue the medication twice daily and monitor blood pressure. Morbid obesity 591740034 E66.01 1. Patient has history of morbid obesity and has been counseled to continue a low-fat low-calori e diet. 2. Specifical ly this month I have advised the patient to focus on keeping active and continue current plan. We also discussed behavior modificati ons with respect to encourage dietary behaviors suggest taking smaller bites, eating slower. 3. Encouraged and discussed plan of increased exercise and daily activity and gradually increasing time in intensity as tolerated. 4. The patient has been reminded to avoid caffeinate d, carbonated , and sugary beverages. Limit high sugar and fat containing foods. Increase water consumptio n to at least 32 ounce daily. 5. Patient has been counseled that significan t sustained weight loss will greatly affect and improve the patient's comorbidit ies. Body mass index 30+ - obesity 693467427 Z68.38 Balanitis 17930122 N48.1 Adverse re action to drug 79256593 T50.905A most likely related to Farxiga use. We will discontinu e Farxiga. Advised patient to call in couple days if symptoms not improving. Hyperglyce ari due to type 2 diabetes mellitus 6888720454 27407 E11.65 stop Farxiga and gave him samples for Janumet 50/500 twice daily and will follow-up with him with the medication to see how his blood sugars are running and if tolerating we'll start him on this medication . [id number] Gabriela Beauchamp MD Main Office [address] [place] [address] 01/12/2024 10:36:49 01/12/2024 11:26:03 Hyperglycemia due to type 2 diabetes mellitus 5867582479 85777 E11.65 stop Farxiga and gave him samples for Janumet 50/500 twice daily and will follow-up with him with the medication to see how his blood sugars are running and if tolerating we'll start him on this medication . Essential hypertension 12472931 I10 BP Today in office 159/89. The patient states his blood pressure at home has been much more stable. Encouraged to continue the medication twice daily and monitor blood pressure. Morbid obesity 816378085 E66.01 1. Patient has history of morbid obesity and has been counseled to continue a low-fat low-calori e diet. 2. Specifical ly this month I have advised the patient to focus on keeping active and continue current plan. We also discussed behavior modificati ons with respect to encourage dietary behaviors suggest taking smaller bites, eating slower. 3. Encouraged and discussed plan of increased exercise and daily activity and gradually increasing time in intensity as tolerated. 4. The patient has been reminded to avoid caffeinate d, carbonated , and sugary beverages. Limit high sugar and fat containing foods. Increase water consumptio n to at least 32 ounce daily. 5. Patient has been counseled that significan t sustained weight loss will greatly affect and improve the patient's comorbidit ies. Body mass index 30+ - obesity [id number] Z68.38 Adult heal th examination [id number] Z00.01 [facility] screening [id number] Z13.39 PHQ9/GAD7 Screening done today. D/W patient. Influenza vaccination declined [id number] Z28.21 Snoring [id number] R06.83 discussed with patient at one point will plan to schedule sleep study. Encouraged him to work on losing weight. Health Concerns Section Related Observation LastModified by Organization Detai ls LastModified Time None Recorded Concern Status LastModified by Organization Details LastModified Time None Recorded Advance Directives Directive None Recorded Payers Encounter Date Sequence Insurance Name Policy Number Policy Alcazar Covered Member ID Alcazar Member ID Guarantor Name 09/03/2023 1 [place] [id number] Misael Ibrahim [id number] 21 Farhan Ibrahim 10/15/2023 1 [place] [id number] Misael Ibrahim [id number] 21 Farhan Ibrahim 11/05/2023 1 [place] [id number] Misael Ibrahim [id number] 21 Farhan Ibrahim 11/19/2023 1 [place] [id number] Misael Ibrahim [id number] 21 Farhan Ibrahim 01/12/2024 1 [place] [id number] Misael Ibrahim [id number] 21 Farhan Ibrahim Notes Date Note Type Note Provider Name and Address Organization Details Recorded Time 09/03/2023 text/html 38 yr old male h ere to establish.Last week he started feeling dizzy and dry mouth. His friend told to check. He went to [facility] and checked and his sugars were 245. He started checking it. Next day he felt the same. he stopped eating. Now its about 119 fasting and going up when eating. 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 He can perform the job better in the first 3 hrs and then notices his feet swell up and gets tired and sluggish. He started noticing this last 1 yr and getting worse.His last PCP was 10 yrs ago when he got his tetanus shot.Last blood test was 15 yrs ago.Last meal at 7 pm.He is waking up 4 times at night to go to the bathroom. Sometimes he cannot sleep and mind running and he feels a lot dry and drinks a lot of water.He did not loose weight. His weight 1.5 yrs ago 195 lbs.His usually is working fri, sat and sun, last time at work was aug,, and did not work last week end. He works 12 hr shift at [employer] those 3 days in the week. Gabriela Beauchamp MD [address] [place], [address], [facility] 09/14/2023 11:47:10 10/15/2023 text/html 38 yo male here for a follow you. C/o Amlodipine makes him feel dizzy. 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 BP elevated today but he has not took his meds yet. BP at home run: 120s/90s. Sugars are running high 165-265 . Check sugars after meals 2 hours. Fasting sugars running 120.He takes his medication in the morning and feels dizzy in 30 min fingers feel tingly and lasts for an hour. He takes it at 3-5 am. Last dose day before yesterday.He is off from work on till 3 pm, He missed his work for couple hours as he missed his medication and took it late at 2:30 pm during the break and started feeling dizzy.He cut down on soda and sugary drink, he switched to seltzer water and brownies. He is watching on his diet.He stopped working since .He works on FRI/SAT/SUN. Gabriela Beauchamp MD [address] [facility], [place], [address], [facility] 01/02/2024 01:53:27 11/05/2023 text/html 38 yo male here for a hospital f/u. He woke up this morning at 1am and was feeling SOB, light headed. Last night around 9 pm he tested his sugars and they were running at 300. His girlfriend took him to [facility] in [place] and his blood pressure was running 160s/100s.They gave him a dose of Labetalol which helped his BP come down. When he was discharge BP was down to the 130s/80s.Currently c/o feeling fatigue and having blurry vision.He works only 3 days a week. He is far [place], son/daughter 14yr/6 yr and mother.He took his medication at 9 pm and felt very dizzy and pain in the head and his BP was 280/110 and went to ER.He had tooth infection and was given steroids and antibiotics at the immediate care and yet to see the dentist.He is eating occ oatmeal cookie. He cutting down the soda.Today he was supposed to return to work. He work from 5 am to 12:45pm. He works F/S/S. Usually 12 hr but cut down. Gabriela Beauchamp MD [address], [place], [address], [facility] 01/31/2024 19:51:48 11/19/2023 text/html 38 yo male here for a follow you. c/o having infection in the penis area and noticing urinating twice daily and swollen and he spit his skin as it is swollen. c/o redness, itching, or swelling of the penis; rash on the penis and pain in the skin around penis.No burning sensation. Blood sugars are low 120-130. He lost about 7 lbs and standing up really fast he gets dizzy. Gabriela Beauchamp MD [address], [place], [address], [facility] 11/23/2023 16:58:02 01/12/2024 text/html Annual WellnessReported bypatient.Diet and Nutrition:healthy diet Fracture Risk:no history of fractures; no recent explained fracture; no sudden unexplained fractures; no previous musculoskeletal injuries Physical Activity:exercises on a regular basis; good physical condition; He walks in the afternoon 20 min/day. He does stretch exercises and situp. Additional Lifestyle Factors:no tobacco use; no alcohol intake; stopped drinking alcohol Depression Risk:never feels sad, empty, or tearful; no loss of interest in activities; no significant changes in weight; no sleep disturbances or insomnia; no agitation; no loss of energy; no feelings of worthlessness or guilt; no thoughts of suicide; no history of depression; no history of mood disorders; 7 hrs of good sleep. c/o still tired in the morning on the days he works. He works F-S-S. Hearing:no loss of hearing Vision:no vision problems 39 yo male here for annual physical. Needs a PA for [employer].39 yr old male here for wellness visit. He ran out of the Segmint 12/25/2023. He is on strict diet control. He has been checking his sugars and they are 90 fasting and 130-150 postprandial 2 hrs. Never in 200.he has sandwich in the morning.BP at home 140/95 occ highest 160/110. HR around 95 and occ 111.He is still getting MOORE. Occ blurred vision. No increased thirst and no increased urination, now low and only once a day. He drinks only 8 oz twice a week, rest of days he drinks about a gallon, He mixes electrolytes without sugar.couple hours into work his feet swell up and takes another couple hours before it gets better.Blood pressure meds around 12-1 pm.His allergies are stable. Gabriela Beauchamp MD [address] [facility], [place], [address], [facility] 01/13/2024 19:26:48
--- OUTSIDE RECORDS SUMMARY | 2024-11-08 14:50 | XMS_ITS | Clinical Summary ---
Author Organization [facility] Address [address] [place] [address] Care Team Providers Care Underwriting Analyst Name Role Phone Unavailable Primary Care Provider Unavailabl e Social History Tobacco Use Types Packs/Day Years Used Date Smoking Tobacco: Never Assessed Sex and Gender Information Value Date Recorded Sex Assigned at Not on file Gender Identity Not on file Sexual Orientation Not on file Plan of Treatment Not on file
--- OUTSIDE RECORDS SUMMARY | 2024-11-08 14:50 | XMS_ITS | Clinical Summary ---
Author Organization [facility] Facility Address [address] [place] [address] Care Team Providers Care Orthotic Assistant Name Role Phone Unavailable Primary Care Provider [...] - 19+ 3-dose series) 2005 Influenza Vaccine (Season Ended) 2025 Pneumococcal Vaccine: Peds ( 0 to 5 Years) and At-Risk Patients (6 to 49 Years) Aged Out No longer eligible b ased on patient's age to complete this topic Insurance [facility]
== END 2024-11-08 14:19 | disposition home or self-care (01) ==
LOC: HO.HMCFM 13:31
PROVIDERS: PCP Physician Assistant; Visit Provider Physician Assistant
DX: I12.9 Hypertensive chronic kidney disease with stage 1 through stage 4 chronic kidney disease, or unspecified chronic kidney disease (principal); E11.22 Type 2 diabetes mellitus with diabetic chronic kidney disease; E11.65 Type 2 diabetes mellitus with hyperglycemia; N18.30 Chronic kidney disease, stage 3 unspecified; M54.6 Pain in thoracic spine

== ENCOUNTER → 2024-11-08 15:48 | Outpatient (BNV) | payer BC, SELFPAY | PROVIDERS: PCP Physician Assistant; Visit Provider Specialist | DX: M54.6 Pain in thoracic spine (principal); M54.2 Cervicalgia | CPT/HCPCS: 72040; 72072 ==